=== PATIENT | male | born 1965 | race Hispanic/Latino ===

== ENCOUNTER 2018-09-19 13:11 | Inpatient (IN) | payer BC ==
[2018-09-19] MEDS ORDERED: Piperacillin/Tazobact 3.375 GM in Sodium Chloride 0.9% 100 ML IVPB STA (14:05)
--- NOTE | 2018-09-19 14:16 | CP.PCM.CON ---
History of Present Illness - History of Present Illness History of Present Illness: Podiatry consult note for Dr. Henley, 53yo male, history of diabetes, seen in the ED for left foot ulcer that has been present for several months. Patient states he has been seeing Dr. Henley regularly for the ulcer. Patient states over the last 2 days he has noticed increased redness, swelling and some discharge from the area. Patient denies doing daily dressing changes. States he recently had an MRI for the foot. Patient denies any fever, chills, vomiting, chest pain, shortness of breath, weakness or numbness in his lower extremities. Pmhx: Diabetes Pshx: none Allergies: NKFDA Social history: denies smoking, occasional drinking PMD: Dr. Juliana Bowles Allergies/Adverse Reactions: Allergies Allergy/AdvReac Type Severity Reaction Status Date / Time No Known Allergies Allergy Verified 09/19/18 13:13 - Medications Medications: Current Medications Vancomycin HCl 1 gm/ Sodium (Chloride) 250 mls @ 166.667 mls/hr IVPB STAT STA; Protocol Stop: 09/19/18 15:34 Piperacillin Sod/Tazobactam (Sod 3.375 gm/ Sodium Chloride) 100 mls @ 100 mls/hr IVPB STAT STA; Protocol Stop: 09/19/18 15:04 Physical Exam - Constitutional Appears: Well, Non-toxic, No Acute Distress - Head Exam Head Exam: ATRAUMATIC - Eye Exam Eye Exam: Normal appearance - Extremities Exam Additional comments: Left lower extremity exam: Vascular: DP/PT 2/4, CFT <3 secs x 10, TG warm to hot, edema and erythema noted on the dorsal aspect of the foot and anterior aspect of leg to the knee joint Derm: Ulcer noted at the base of 1st MPJ measuring approximately 2cm x 2cm with fibrotic base. Ulcer is probe to bone, malodorous, active purulent drainage is noted. No tracking or tunneling is appreciated. fluctuance is noted on the dorsal aspect of the 1st MPJ. Erythema and edema noted on the dorsal aspect of the foot extending distally to the knee joint ortho: no pain with palpation of the ulcer, minimal palpation with palpation of the leg diffusely neuro: protective sensation diminished 0/4. Results - Vital Signs Recent Vital Signs: Last Vital Signs Temp 100.3 F H 09/19/18 13:13 Pulse 109 H 02/05/19 13:13 Resp 18 09/19/18 13:13 BP 132/76 09/19/18 13:13 Pulse Ox 97 09/19/18 13:13 - Labs Result Diagrams: 09/19/18 14:26 09/19/18 14:26 Assessment & Plan - Assessment and Plan (Free Text) Assessment: 53 yo male seen and evaluated for left foot first MPJ infected ulcer with cellulitic changes distal to the knee joint. Plan: Patient seen and evaluated Chart, labs and vitals reviewed; WBC 13.8 100.3 F Left foot x-rays reviewed: erosions noted to the distal aspect of the first metatarsal and proximal aspect of first proximal phalanx, no subcutaneous emphysema noted Left foot dressed with gauze, and kerlix Wound cultures taken and ordered Blood cultures taken and ordered Plan: Patient for incision and drainage today (09/19). NPO order placed Patient to be admitted under hospitalist. Please provide medical clearance. Podiatry will continue to follow the patient; thank you for the consult
--- NOTE | 2018-09-19 14:34 | ED PDOC ---
Lower Extremity Pain/Injury Time Seen by Provider: 09/19/18 13:29 Chief Complaint (Nursing): Lower Extremity Problem/Injury Chief Complaint (Provider): Left foot pain History Per: Patient History/Exam Limitations: no limitations Onset/Duration Of Symptoms: Persistent Current Symptoms Are (Timing): Still Present Additional Complaint(s): 53yo male, history of diabetes, comes to ER reporting left foot ulcer x months, but states over the past 5 days, he has noted increased redness, swelling and discharge from the site. Patient went to see his ingredient handler Dr. Henley, who recommended him to come to the ER for further evaluation. Patient otherwise denies any fever, chills, vomiting, chest pain, shortness of breath, weakness or numbness in his lower extremities. PMD: Dr. Andrews - Ankle/Foot Description Of Injury: Other (non-healing ulcer) Past Medical History Reviewed: Historical Data, Nursing Documentation, Vital Signs Vital Signs: Last Vital Signs Temp 100.3 F H 09/19/18 13:13 Pulse 109 H 09/19/18 13:13 Resp 18 09/19/18 13:13 BP 132/76 09/19/18 13:13 Pulse Ox 97 09/19/18 13:13 - Medical History PMH: Diabetes - Surgical History Surgical History: No Surg Hx - Family History Family History: States: No Known Family Hx - Social History Current smoker - smoking cessation education provided: No Alcohol: None Drugs: Denies - Home Medications Home Medications: Ambulatory Orders Medication Instructions Recorded DULoxetine [Cymbalta] 60 mg PO HS 09/19/18 Folic Acid 0.4 mg PO DAILY 09/19/18 Glyburide/Metformin HCl 1 tab PO QPM 09/19/18 [Glyburide-Metformin 2.5-500 mg] Lovastatin 20 mg PO HS 09/19/18 Multivit-Min/FA/Lycopen/Lutein 1 tab PO DAILY 09/19/18 [Centrum Silver Men Tablet] Pyridoxine [Vitamin B6 50 mg Tab] 50 mg PO DAILY 09/19/18 lamoTRIgine [Lamictal] 25 mg PO Q12 09/19/18 - Allergies Allergies/Adverse Reactions: Allergies Allergy/AdvReac Type Severity Reaction Status Date / Time No Known Allergies Allergy Verified 09/19/18 13:13 Review of Systems ROS Statement: Except As Marked, All Systems Reviewed And Found Negative Constitutional: Negative for: Fever, Chills Cardiovascular: Negative for: Chest Pain Respiratory: Negative for: Shortness of Breath Gastrointestinal: Negative for: Vomiting Musculoskeletal: Positive for: Foot Pain (left foot pain, redness and swelling) Neurological: Negative for: Weakness, Numbness Physical Exam - Reviewed Nursing Documentation Reviewed: Yes Vital Signs Reviewed: Yes - Physical Exam Appears: Positive for: Non-toxic, No Acute Distress Head Exam: Positive for: ATRAUMATIC, NORMAL INSPECTION, NORMOCEPHALIC Skin: Positive for: Normal Color Eye Exam: Positive for: Normal appearance, EOMI, PERRL Neck: Positive for: Normal, Supple Cardiovascular/Chest: Positive for: Regular Rate, Rhythm Respiratory: Positive for: Normal Breath Sounds Pulses-Dorsalis Pedis (R): 2+ Pulses-Post. Tibialis (R): 2+ Gastrointestinal/Abdominal: Positive for: Normal Exam, Soft Back: Positive for: Normal Inspection Extremity: Positive for: Normal ROM (FROM bilateral lower extremities), Swelling (swelling and erythema noted to left lower extremity), Other (full exam of left foot limited as the foot is wrapped; will wait for eval after podiatry resident sees patient.). Negative for: Calf Tenderness, Deformity Neurologic/Psych: Positive for: Alert, Oriented. Negative for: Motor/Sensory Deficits - Laboratory Results Result Diagrams: 09/20/18 03:15 09/20/18 03:15 - ECG O2 Sat by Pulse Oximetry: 97 (RA) Pulse Ox Interpretation: Normal Medical Decision Making Medical Decision Making: Impression: 53yo male with non-healing ulcer to left foot Differential: osteomyelitis, cellulitis, sepsis Plan: -- labs -- XR left foot -- VBG -- IV Vancomycin -- IV Zosyn -- Tylenol 650mg PO Patient states he recently had MRI of his left foot, which indicated left foot osteomyelitis. 1400 Case discussed with podiatry resident, who will evaluate patient at bedside. [address] Andrews, who is agreeable with plan for admission. 1510 Right foot exam: (+) erythema to left foot; (+) fluctuance noted to plantar aspect of left foot, on the 1st metatarsal; wound noted to same area with discharge. [address] Joel, hospitalist regional service manager, who accepts patient for admission. Plan of care discussed with patient, who is agreeable. Scribe Attestation: Documented by Kelly Hope acting as a scribe for Agustin Alfonso MD. Provider Attestation: All medical record entries made by the Scribe were at my direction and personally dictated by me. I have reviewed the chart and agree that the record accurately reflects my personal performance of the history, physical exam, medical decision making, and the department course for this patient. I have also personally directed, reviewed, and agree with the discharge instructions and disposition. Disposition - Clinical Impression Clinical Impression: Cellulitis, Osteomyelitis of foot, Sepsis - Patient ED Disposition Is Patient to be Admitted: Yes Discussed With DrLyssa: Aravind Joel Doctor Will See Patient In The: ED Counseled Patient/Family Regarding: Studies Performed, Diagnosis - Disposition Disposition Time: 15:17 Condition: FAIR - Pt Status Changed To: Hospital Disposition Of: Inpatient - Admit Certification Admit to Inpatient:: After my assessment, the patient will require hospitalization for at least two midnights. This is because of the severity of symptoms shown, intensity of services needed, and/or the medical risk in this patient being treated as an outpatient. - POA Present On Arrival: Poor Glycemic Control, Pressure Ulcer
[2018-09-19 14:40] LABS: VENOUS BLOOD GAS PCO2 40 mmHg (40-60); VENOUS BLOOD GAS PO2 20 mm/Hg (30-55)
[2018-09-19] MEDS ORDERED: Sodium Chloride 0.9% 1,000 ML IV STA (14:41)
[2018-09-19 14:45] LABS: BASO % 0.2 % (0.0-2.0); EOS % 0.2 % (0.0-4.0); HEMOGLOBIN 12.3 g/dL (12.0-18.0); MEAN CELL VOLUME 89.6 fl (80.0-94.0); MEAN CORPUSCULAR HGB CONC 33.5 g/dL (33.0-37.0); MEAN PLATELET VOLUME 9.8 fl (7.2-11.7); MONO # 1.5 K/uL (0.0-0.8); MONO % 10.8 % (0.0-10.0); NEUT # 11.3 K/uL (1.8-7.0); NEUT % 81.8 % (50.0-75.0); NRBC % 0.2 % (0.0-0.0); PLATELET COUNT 189 K/uL (130-400); RED CELL DISTRIBUTION WIDTH 13.1 % (11.5-14.5); WHITE BLOOD COUNT 13.8 K/uL (4.8-10.8)
[2018-09-19 14:48] LABS: INR 1.3; PROTHROMBIN TIME 15.1 Seconds (9.8-13.1)
[2018-09-19 14:51] LABS: PARTIAL THROMBOPLASTIN TIME 26.2 Seconds (25.6-37.1)
[2018-09-19 14:52] LABS: BLOOD UREA NITROGEN 34 mg/dl (9-20); CALCIUM 9.3 mg/dL (8.4-10.2); GFR NON-AFRICAN AMERICAN > 60
[2018-09-19 15:23] LABS: BANDS 2 % (0-2); BASOPHIL 1 % (0-2); LYMPHOCYTE 8 % (20-50); MONOCYTE 12 % (0-10); NEUTROPHIL 75 % (42-75); REACTIVE LYMPHOCYTES 2 % (0-0); TOTAL CELLS COUNTED 100
--- NOTE | 2018-09-19 15:23 | CP.PCM.CON ---
History of Present Illness - History of Present Illness History of Present Illness: Infectious Disease Consultation Note- asked to see this patient at the request of hospitalist for infected foot ulcer /cellulitis. HPI- Patient is a 53 year old male with PMH of M II, peripheral neuropathy who was told to go to ER by His beekeeper for treatment of his infected left plantar ulcer and surrounding cellulitis and edema. Monican sattes he has had this plantar ulcer for along time and follows up with his beekeeper every 2 weeks for local wound care, however , he satts over the last few days he has developed redness, swelling and pain in the surrounding region and when he saw his beekeeper today he was advised to go to ER for further evaluation adn IV antibiotics and he also states he had recent outpatient MRI of the foot and it showed possible OM as well and he was told he may need surgery as well for this. He denies any fever or chills . PMD: Dr. Andrews PMHx: DMII, HLD PSHx: denies SHx: Former tobacco use (2009), social alcohol use, denies drug use Meds: Cymbalta, Glyburide/Metformin, Lamictal, Lovastatin, Multivitamin ALL: NKDA ED course: Vanco/Zosyn x1 dose given Foot x-ray taken; No fracture or dislocation, diffuse soft tissue edema Review of Systems - Review of Systems Review of Systems: ROS_ denies any fever or chills, denies any BUSTILLOS, denies any cough, denies any sob, denies any chest pain, denies any abd. pain, denies any nausea or vomiting, denies any dysurea, denies any diarrhea left plantar foot with chronic nonhealing ulcer and has developed redness and swelling in the foot extending to the leg Past Patient History - Past Social History Alcohol: None Drugs: Denies Home Situation {Lives}: Alone - CARDIAC Hx Cardiac Disorders: No - PULMONARY Hx Respiratory Disorders: No - ENDOCRINE/METABOLIC Hx Diabetes Mellitus Type 2: Yes - HEMATOLOGICAL/ONCOLOGICAL Hx Blood Disorders: No Meds Allergies/Adverse Reactions: Allergies Allergy/AdvReac Type Severity Reaction Status Date / Time No Known Allergies Allergy Verified 09/19/18 13:13 - Medications Medications: Current Medications Vancomycin HCl 1 gm/ Sodium (Chloride) 250 mls @ 166.667 mls/hr IVPB STAT STA; Protocol Stop: 09/19/18 15:34 Sodium Chloride (Sodium Chloride 0.9%) 1,000 mls @ 1,000 mls/hr IV .Q1H STA Stop: 09/19/18 15:40 Physical Exam - Constitutional Appears: No Acute Distress - Head Exam Head Exam: ATRAUMATIC - Eye Exam Eye Exam: EOMI - ENT Exam ENT Exam: Normal Oropharynx - Neck Exam Neck exam: Positive for: Full Rom - Respiratory Exam Respiratory Exam: Clear to Auscultation Bilateral, NORMAL BREATHING PATTERN - Cardiovascular Exam Cardiovascular Exam: RRR, +S1, +S2 - GI/Abdominal Exam GI & Abdominal Exam: Normal Bowel Sounds, Soft Additional comments: NT, ND - Extremities Exam Additional comments: left plantar superior region with open wound around 3 x 3 cm, no malodor, no active discharge positive erythema and edema in the surrounding region and dorsal foot and ankle extending to mid calf region - Neurological Exam Neurological exam: Alert, Oriented x3 Results - Vital Signs Recent Vital Signs: Last Vital Signs Temp 100.3 F H 09/19/18 13:13 Pulse 109 H 09/19/18 13:13 Resp 18 09/19/18 13:13 BP 132/76 09/19/18 13:13 Pulse Ox 97 09/19/18 15:17 - Labs Result Diagrams: 09/19/18 14:26 09/19/18 14:26 Labs: Laboratory Results - last 24 hr 09/19/18 09/19/18 09/19/18 14:26 14:26 14:26 WBC 13.8 H RBC 4.10 L Hgb 12.3 Hct 36.7 MCV 89.6 MCH 30.0 MCHC 33.5 RDW 13.1 Plt Count 189 MPV 9.8 Neut % (Auto) 81.8 H Lymph % (Auto) 7.0 L [place] % (Auto) 10.8 H Eos % (Auto) 0.2 Baso % (Auto) 0.2 Neut # (Auto) 11.3 H Lymph # (Auto) 1.0 [place] # (Auto) 1.5 H Eos # (Auto) 0.0 Baso # (Auto) 0.0 PT 15.1 H INR 1.3 APTT 26.2 pO2 VBG pH VBG pCO2 VBG HCO3 VBG Total CO2 VBG O2 Sat (Calc) VBG Base Excess VBG Potassium Glucose Lactate FiO2 Sodium 134 Potassium 5.3 H Chloride 94 L Carbon Dioxide 24 Anion Gap 21 H BUN 34 H Creatinine 0.7 L Est GFR ( Amer) > 60 Est GFR (Non-Af Amer) > 60 Random Glucose 246 H Calcium 9.3 Venous Blood Potassium BBK History Checked 09/19/18 09/19/18 14:26 14:37 WBC RBC Hgb Hct MCV MCH MCHC RDW Plt Count MPV Neut % (Auto) Lymph % (Auto) [place] % (Auto) Eos % (Auto) Baso % (Auto) Neut # (Auto) Lymph # (Auto) [place] # (Auto) Eos # (Auto) Baso # (Auto) PT INR APTT pO2 20 L VBG pH 7.40 VBG pCO2 40 VBG HCO3 23.2 VBG Total CO2 26.0 VBG O2 Sat (Calc) 45.0 VBG Base Excess 0.0 VBG Potassium 5.0 Glucose 259 H Lactate 3.8 H FiO2 21.0 Sodium 129.0 L Potassium Chloride 101.0 Carbon Dioxide Anion Gap BUN Creatinine Est GFR ( Amer) Est GFR (Non-Af Amer) Random Glucose Calcium Venous Blood Potassium 5.0 BBK History Checked No verified bt Assessment & Plan (1) Cellulitis Status: Acute (2) Non-healing ulcer of left foot Status: Acute (3) Diabetes Status: Acute - Assessment and Plan (Free Text) Assessment: A/P- 53 year old male with DM II, nonhealing left foot ulcer admitted with edema and erythema in the left foot and leg c/w cellulitis and possible OM. low grade fever mild leukocytosis foot xray report-No acute fracture or dislocation left foot. However, diffuse soft tissue edema is appreciated throughout the left foot both to clearly at the great toe and 1st metatarsophalangeal joint with erosive changes suspicious for gout. Other deposition arthritis or even osteomyelitis would be difficult to fully exclude. Follow-up MRI recommended. Gross hallux valgus deformity. Plan- check blood cx x2 check wound cx. agree with IV zosyn and vanco as initiated by the admitting team. keep vanco trough between 10-15. check ESR. obtain the outpatient MRI report. check LLE US r/o dvt as well. all labs and imaging and chart notes reviewed. Plan d/w patient and he verbalizes full understanding of all above and agrees with above plan of care. Thank you for allowing me to take part in the care of this patient.
[2018-09-19 15:24] LABS: PLATELET ESTIMATE NORMAL (NORMAL)
--- NOTE | 2018-09-19 15:43 | CP.PCM.HP ---
History of Present Illness - History of Present Illness History of Present Illness: 53 year old male patient, with PMHx of DM and HLD, seen and evaluated in the ED for left foot infection secondary to left plantar ulceration. Patient states that he has had the ulceration on and off for a couple of years and it has rec ently gotten larger. He follows up with Dr. Henley every two weeks for continued evaluation and local wound care. However he missed his last appointment by one week, went to Dr. Henley's office today, and was told to go to the ER for admission. He denies N/V/F/SOB, admits to chills. PMD: Dr. Andrews PMHx: DMII, HLD PSHx: denies SHx: Former tobacco use (2009), social alcohol use, denies drug use Meds: Cymbalta, Glyburide/Metformin, Lamictal, Lovastatin, Multivitamin ALL: NKDA ED course: Vanco/Zosyn x1 dose given Foot x-ray taken; No fracture or dislocation, diffuse soft tissue edema Vitals: 100.3F, HR 109, RR 18, BP 132/76 Glucose 259, WBC 13.8, Lactate 3.8 Present on Admission - Present on Admission Any Indicators Present on Admission: Yes History of DVT/PE: No History of Uncontrolled Diabetes: Yes Urinary Catheter: No Decubitus Ulcer Present: No History Surgical Site Infection Following: None Review of Systems - Constitutional Constitutional: As Per HPI, Chills. absent: Fever Past Patient History - Past Social History Alcohol: None Drugs: Denies Meds Allergies/Adverse Reactions: Allergies Allergy/AdvReac Type Severity Reaction Status Date / Time No Known Allergies Allergy Verified 09/19/18 13:13 Physical Exam - Constitutional Appears: No Acute Distress - Head Exam Head Exam: ATRAUMATIC, NORMOCEPHALIC - Eye Exam Eye Exam: Normal appearance Pupil Exam: NORMAL ACCOMODATION - Cardiovascular Exam Cardiovascular Exam: REGULAR RHYTHM - GI/Abdominal Exam GI & Abdominal Exam: Normal Bowel Sounds - Extremities Exam Additional comments: Left lower extremity ulceration Cellulitis appreciated from ulceration site to distal aspect of left leg - Neurological Exam Neurological exam: Alert, Oriented x3 - Psychiatric Exam Psychiatric exam: Normal Affect, Normal Mood Results - Vital Signs Recent Vital Signs: Last Vital Signs Temp 100.3 F H 09/19/18 13:13 Pulse 109 H 09/19/18 13:13 Resp 18 09/19/18 13:13 BP 132/76 09/19/18 13:13 Pulse Ox 97 09/19/18 15:17 - Labs Result Diagrams: 09/19/18 14:26 09/19/18 14:26 Labs: Laboratory Results - last 24 hr 09/19/18 09/19/18 09/19/18 14:26 14:26 14:26 WBC 13.8 H RBC 4.10 L Hgb 12.3 Hct 36.7 MCV 89.6 MCH 30.0 MCHC 33.5 RDW 13.1 Plt Count 189 MPV 9.8 Neut % (Auto) 81.8 H Lymph % (Auto) 7.0 L [place] % (Auto) 10.8 H Eos % (Auto) 0.2 Baso % (Auto) 0.2 Neut # (Auto) 11.3 H Lymph # (Auto) 1.0 [place] # (Auto) 1.5 H Eos # (Auto) 0.0 Baso # (Auto) 0.0 Neutrophils % (Manual) 75 Band Neutrophils % 2 Lymphocytes % (Manual) 8 L Reactive Lymphs % 2 H Monocytes % (Manual) 12 H Basophils % (Manual) 1 Platelet Estimate Normal RBC Morphology Normal PT 15.1 H INR 1.3 APTT 26.2 pO2 VBG pH VBG pCO2 VBG HCO3 VBG Total CO2 VBG O2 Sat (Calc) VBG Base Excess VBG Potassium Glucose Lactate FiO2 Sodium 134 Potassium 5.3 H Chloride 94 L Carbon Dioxide 24 Anion Gap 21 H BUN 34 H Creatinine 0.7 L Est GFR ( Amer) > 60 Est GFR (Non-Af Amer) > 60 Random Glucose 246 H Calcium 9.3 Venous Blood Potassium Blood Type Blood Type Confirm Antibody Screen BBK History Checked 09/19/18 09/19/18 09/19/18 14:26 14:37 15:04 WBC RBC Hgb Hct MCV MCH MCHC RDW Plt Count MPV Neut % (Auto) Lymph % (Auto) [place] % (Auto) Eos % (Auto) Baso % (Auto) Neut # (Auto) Lymph # (Auto) [place] # (Auto) Eos # (Auto) Baso # (Auto) Neutrophils % (Manual) Band Neutrophils % Lymphocytes % (Manual) Reactive Lymphs % Monocytes % (Manual) Basophils % (Manual) Platelet Estimate RBC Morphology PT INR APTT pO2 20 L VBG pH 7.40 VBG pCO2 40 VBG HCO3 23.2 VBG Total CO2 26.0 VBG O2 Sat (Calc) 45.0 VBG Base Excess 0.0 VBG Potassium 5.0 Glucose 259 H Lactate 3.8 H FiO2 21.0 Sodium 129.0 L Potassium Chloride 101.0 Carbon Dioxide Anion Gap BUN Creatinine Est GFR ( Amer) Est GFR (Non-Af Amer) Random Glucose Calcium Venous Blood Potassium 5.0 Blood Type AB POSITIVE Blood Type Confirm AB POSITIVE Antibody Screen Negative BBK History Checked No verified bt Assessment & Plan - Assessment and Plan (Free Text) Assessment: 53 year old male patient, with PMHx of DM and HLD, admitted for sepsis Plan: 1. Sepsis secondary to left foot ulceration with possible abscess - Admit to med/surg - Podiatry consult: Dr. Henley - ID consult Dr. Cervantes - NPO diet - Fluids at 250ml/hr - C/w Vanco/Zosyn - CBC, CMP, PT/INR - CXR- prelim within normal limits (my interpretation), will f/u with official results - Cleared by Cardio - Patient to OR tonight at 7:30 per podiatry 2. DMII - hold metformin/glipizide - continue with medium dose sliding scale 3. HLD - start statins tomorrow 4. Neuropathy - will start cymbalta and lyrica tomorrow, hold for now 4. DVT prophylaxis - SCDs 5. Code status -Full code - Date & Time Date: 09/19/18 Time: 16:31
[2018-09-19] MEDS ORDERED: Piperacillin/Tazobact 3.375 gm Inj IVPB ONE (15:49)
[2018-09-19] MEDS ORDERED: Glucagon Recombinant 1 mg Inj IM PRN (15:52)
[2018-09-19] MEDS ORDERED: Dextrose 50% SYRINGE Inj (50 ml) IV PRN (15:52)
[2018-09-19] MEDS ORDERED: Dextrose 50% SYRINGE Inj (50 ml) IVP PRN (15:52)
[2018-09-19] MEDS ORDERED: Sodium Chloride 0.9% 1,000 ML IV SCH ×2 (16:00→16:41)
[2018-09-19] MEDS: Piperacillin/Tazobact 3.375 GM in Sodium Chloride 0.9% 100 ML IVPB SCH ×2 (16:07→22:06)
--- NOTE | 2018-09-19 16:07 | RAD ---
Date of service: 09/19/2018 PROCEDURE: Left Foot Radiographs. HISTORY: left foot ulcer pain swelling COMPARISON: None. FINDINGS: BONES: No acute fracture or dislocation identified. Soft tissue edema surrounds the great toe and 1st metatarsal phalangeal joint with diffuse soft tissue edema seen throughout the midfoot and hindfoot on a low less prominent basis compared to the great toe. No emphysematous soft tissue change are identified or retained radiodense foreign bodies. However, a severe hallux valgus deformity is evident with marginal erosions related to the 1st metatarsal phalangeal joint suspicious for possible gout or other deposition all arthritis. No additional marginal erosions. Osteomyelitis not completely excluded. Follow-up MRI is recommended. JOINTS: As above. SOFT TISSUES: Normal. OTHER FINDINGS: None. IMPRESSION: No acute fracture or dislocation left foot. However, diffuse soft tissue edema is appreciated throughout the left foot both to clearly at the great toe and 1st metatarsophalangeal joint with erosive changes suspicious for gout. Other deposition arthritis or even osteomyelitis would be difficult to fully exclude. Follow-up MRI recommended. Gross hallux valgus deformity.
[2018-09-19 16:37] LABS: ERYTHROCYTE SEDIMENTATION RATE 95 mm/hr (0-20)
[2018-09-19] MEDS ORDERED: Vancomycin 1 g Inj ONE (17:30)
--- NOTE | 2018-09-19 18:03 | RAD ---
Date of service: 09/19/2018 HISTORY: Sepsis, patient to OR tonight COMPARISON: No prior. FINDINGS: LUNGS: The lungs are well inflated and clear. PLEURA: No pleural effusions or pneumothorax. CARDIOVASCULAR: The heart is normal in size. No aortic atherosclerotic calcifications present. OSSEOUS STRUCTURES: Within normal limits for the patient's age. VISUALIZED UPPER ABDOMEN: Normal. OTHER FINDINGS: None. IMPRESSION: No active pulmonary disease.
[2018-09-19] MEDS: Insulin Regular 100 units/ml SC SCH ×2 (18:05→22:56)
[2018-09-19] MEDS ORDERED: Lidocaine 1% 5ml Abboject ONE (19:04)
[2018-09-19] MEDS ORDERED: Midazolam 2 MG/2 ML VIAL ONE (19:04)
[2018-09-19] MEDS ORDERED: Propofol 10 mg/ml Inj (20 ML) ONE (19:04)
[2018-09-19] MEDS ORDERED: Lidocaine 2% Jelly (5 ml) TOP ONE (19:05)
[2018-09-19] MEDS ORDERED: Bupivacaine 0.5% Inj(30mL) ONE (19:19)
[2018-09-19] MEDS ORDERED: Lidocaine 1% Inj (20ml) ONE (19:19)
[2018-09-19] MEDS ORDERED: Sodium Chloride 0.9% 1,000 ML IV ONE (20:00)
[2018-09-19] MEDS ORDERED: Silver Sulfadiazine 1% CREAM (50 gm) ONE (20:09)
[2018-09-19] MEDS ORDERED: HYDROmorphone 0.5 mg/0.5 ml ISec IVP PRN (21:18)
--- NOTE | 2018-09-19 21:22 | PCM.SURG1 ---
Surgeon's Initial Post Op Note - Surgeon's Notes Surgeon: Dr. Henley Tailor'S Aide: Eileen Kumar, PGY1 Type of Anesthesia: General LMA, Local Anesthesia Administered By: Dr. Delgado Pre-Operative Diagnosis: Left foot submet 1 abscess and osteomyelitis of left tibial and fibular sesamoid of the first metatarsal Operative Findings: see dictation. materials: 3-0 prolene, 1 inch plain packing. injectibles: 20 cc of 1:1 mixture of .5% marcaine and 2% lidocaine plain Post-Operative Diagnosis: same Operation Performed: left foot incision and drainange of the abscess and resection of tibial and fibular sesamoid of the first metatarsal Specimen/Specimens Removed: deep tissue cultures. pathology: tibial and fibular sesamoid of the first metatarsal Estimated Blood Loss: EBL {In ML}: 2 Blood Products Given: N/A Drains Used: No Drains Post-Op Condition: Good Date of Surgery/Procedure: 09/19/18 Time of Surgery/Procedure: 21:22
[2018-09-19] MEDS ORDERED: Oxycodone/Acetaminophen 5/325 mg Tab PO PRN ×2 (21:24)
[2018-09-19] MEDS: Pravastatin Sodium 20 MG TAB PO SCH (22:54)
[2018-09-20] MEDS: Lactated Ringer's 1,000 ML IV SCH ×3 (03:06→17:49)
--- NOTE | 2018-09-20 03:27 | CP.PCM.PCO ---
Addendum Addendum: Late entry: Came see patient around 1 am; patient awake, back from OR; laying comfortably in bed in no acute distress, stated he wanted to sleep. Denied difficulty breathing, specific pain, discomfort. Notified by RN that pt had fever 102.5F; ordered PO acetaminophen 650 mg and repeat blood cultures x2 to be collected. Ordered incentive spirometer Q1 hrs.
[2018-09-20 03:33] LABS: HEMOGLOBIN 10.7 g/dL (12.0-18.0); MEAN CELL VOLUME 88.6 fl (80.0-94.0); MEAN CORPUSCULAR HEMOGLOBIN 29.8 pg (27.0-31.0); MEAN CORPUSCULAR HGB CONC 33.6 g/dL (33.0-37.0); RBC 3.61 Mil/uL (4.40-5.90); RED CELL DISTRIBUTION WIDTH 12.6 % (11.5-14.5); WHITE BLOOD COUNT 9.3 K/uL (4.8-10.8)
[2018-09-20 03:49] LABS: BLOOD UREA NITROGEN 21 mg/dl (9-20); CALCIUM 8.3 mg/dL (8.4-10.2); GFR NON-AFRICAN AMERICAN > 60
[2018-09-20] MEDS: Piperacillin/Tazobact 3.375 GM in Sodium Chloride 0.9% 100 ML IVPB SCH ×4 (03:57→21:22)
[2018-09-20] MEDS: Insulin Regular 100 units/ml SC SCH ×4 (08:29→22:01)
--- NOTE | 2018-09-20 09:45 | CP.PCM.PN ---
Subjective - Date & Time of Evaluation Date of Evaluation: 09/20/18 Time of Evaluation: 08:30 - Subjective Subjective: Podiatry progress note for Dr. Henley, 53yo male, history of diabetes, seen at bedside 1 day s/p I&D of Left foot abscess and resection of tibial and fibular sesamoid of the first metatarsal. Patient is AAox3 and in NAD. Patient states he had a fever overnight twice and was given medicine for it. Patient denies any decrease in appeitite, chills, vomiting, chest pain, shortness of breath, weakness or numbness in his lower extremities Objective - Vital Signs/Intake and Output Vital Signs (last 24 hours): Temp Pulse Resp BP Pulse Ox 98.6 F 85 20 99/49 L 97 09/20/18 08:16 09/20/18 08:16 09/20/18 08:16 09/20/18 08:16 09/20/18 08:16 Intake and Output: 09/20/18 09/20/18 06:59 18:59 Intake Total 500 Balance 500 - Medications Medications: Current Medications Acetaminophen (Tylenol 325mg Tab) 650 mg PO Q6 PRN PRN Reason: Pain, Mild (1-3) Dextrose (Dextrose 50% Inj) 0 ml IV STAT PRN; Protocol PRN Reason: Hypoglycemia Protocol Dextrose (Dextrose 50% Inj) 50 ml IVP ONCE PRN PRN Reason: Hypoglycemia Dextrose (Glutose 15) 0 gm PO ONCE PRN; Protocol PRN Reason: Hypoglycemia Protocol Duloxetine HCl (Cymbalta) 60 mg PO HS [facility] Last Admin: 09/19/18 22:54 Dose: 60 mg Enoxaparin Sodium (Lovenox) 40 mg SC DAILY [facility]; Protocol Glucagon (Glucagen Diagnostic Kit) 0 mg IM STAT PRN; Protocol PRN Reason: Hypoglycemia Protocol Piperacillin Sod/Tazobactam (Sod 3.375 gm/ Sodium Chloride) 100 mls @ 100 mls/hr IVPB Q6 [facility]; Protocol Last Admin: 09/20/18 09:36 Dose: 100 mls/hr Sodium Chloride (Sodium Chloride 0.9%) 1,000 mls @ 250 mls/hr IV .Q4H [facility] Stop: 09/20/18 15:57 Vancomycin HCl 1,200 mg/ (Sodium Chloride) 250 mls @ 166.667 mls/hr IVPB Q12H [facility]; Protocol Last Admin: 09/20/18 05:09 Dose: 166.667 mls/hr Lactated Ringer's (Lactated Ringer's) 1,000 mls @ 100 mls/hr IV .Q10H [facility] Last Admin: 09/20/18 08:30 Dose: Not Given Insulin Human Regular (Humulin R) 0 units SC [facility]; Protocol Last Admin: 09/20/18 08:29 Dose: 2 units Lamotrigine (Lamictal) 25 mg PO Q12 [facility] Last Admin: 09/20/18 09:38 Dose: 25 mg Oxycodone/Acetaminophen (Percocet 5/325 Mg Tab) 1 tab PO Q4 PRN PRN Reason: Pain, moderate (4-7) Stop: 09/22/18 21:25 Oxycodone/Acetaminophen (Percocet 5/325 Mg Tab) 2 tab PO Q4 PRN PRN Reason: Pain, severe (8-10) Stop: 09/22/18 21:25 Pravastatin Sodium (Pravachol) 20 mg PO [facility] Last Admin: 09/19/18 22:54 Dose: 20 mg - Labs Labs: 09/20/18 03:15 09/20/18 03:15 PT 15.1 Seconds (9.8-13.1) H 09/19/18 14:26 INR 1.3 09/19/18 14:26 APTT 26.2 Seconds (25.6-37.1) 09/19/18 14:26 - Constitutional Appears: Well, Non-toxic, No Acute Distress - Head Exam Head Exam: ATRAUMATIC - Eye Exam Eye Exam: Normal appearance Pupil Exam: NORMAL ACCOMODATION - Extremities Exam Additional comments: Left lower extremity exam: Vascular: DP/PT 2/4, CFT <3 secs x 10, TG warm to warm, edema and erythema noted on the dorsal aspect of the foot and anterior aspect of leg to the knee joint(resolving proximally) Derm: Surigical Incision noted connecting the Ulcer noted at the base of 1st MPJ measuring approximately 2cm x 2cm with fibrotic base. Ulcer is probe to bone, minimal active serosanguinous drainage. Retention sutures noted at the incisino site with packing intact. Erythema and edema noted on the dorsal aspect of the foot extending distally to the knee joint( resolving proximally) ortho: no pain with palpation of the ulcer, minimal palpation with palpation of the leg diffusely neuro: protective sensation diminished 0/4. Assessment and Plan - Assessment and Plan (Free Text) Assessment: 53 yo male seen and evaluated 1 day s/p Left foot I&D and resection of tibial and fibular sesamoid of the first metatarsal Plan: Patient seen and evaluated Chart, labs and vitals reviewed; WBC 9.3 102.7 at night. Left foot x-rays reviewed: erosions noted to the distal aspect of the first metatarsal and proximal aspect of first proximal phalanx, no subcutaneous emphysema noted Packing advanced from the ulcer site, and dressed with SSD, DSD and BIANKA Wound cultures pending Blood cultures pending Podiatry will continue to follow the patient
--- NOTE | 2018-09-20 10:20 | RAD ---
Date of service: 09/19/2018 PROCEDURE: Left Foot Radiographs. HISTORY: left foot s/p sesamoid resection COMPARISON: 09/19/2018 1:56 p.m. FINDINGS: BONES: Status post resection of sesamoid adjacent to distal aspect 1st metatarsal and osteotomy distal 1st metatarsal. No acute fracture. JOINTS: Osteoarthritis MTP 1. Remaining joint spaces and articular surfaces are preserved. SOFT TISSUES: Postoperative changes medial aspect 1st digit OTHER FINDINGS: None. IMPRESSION: Osteotomy 1st metatarsal and sesamoidectomy adjacent to 1st metatarsal head.
[2018-09-20] MEDS: Enoxaparin 40 mg Syringe SC SCH (10:46)
--- NOTE | 2018-09-20 11:02 | CP.PCM.PN ---
Subjective - Date & Time of Evaluation Date of Evaluation: 09/20/18 Time of Evaluation: 11:02 - Subjective Subjective: Patient seen at bedside this AM. Patient resting comfortably and in NAD. He reports having a fever overnight and was given Tylenol. He states that he feels better now and doesn't feel hot anymore. He reports minimal pain to the surgical site. Denies N/V/F/SOB/CP. Objective - Vital Signs/Intake and Output Vital Signs (last 24 hours): Temp Pulse Resp BP Pulse Ox 98.6 F 85 20 99/49 L 97 09/20/18 08:16 09/20/18 08:16 09/20/18 08:16 09/20/18 08:16 09/20/18 08:16 Intake and Output: 09/20/18 09/20/18 06:59 18:59 Intake Total 500 Balance 500 - Medications Medications: Current Medications Acetaminophen (Tylenol 325mg Tab) 650 mg PO Q6 PRN PRN Reason: Pain, Mild (1-3) Dextrose (Dextrose 50% Inj) 0 ml IV STAT PRN; Protocol PRN Reason: Hypoglycemia Protocol Dextrose (Dextrose 50% Inj) 50 ml IVP ONCE PRN PRN Reason: Hypoglycemia Dextrose (Glutose 15) 0 gm PO ONCE PRN; Protocol PRN Reason: Hypoglycemia Protocol Duloxetine HCl (Cymbalta) 60 mg PO HS [facility] Last Admin: 09/19/18 22:54 Dose: 60 mg Enoxaparin Sodium (Lovenox) 40 mg SC DAILY [facility]; Protocol Last Admin: 09/20/18 10:46 Dose: 40 mg Glucagon (Glucagen Diagnostic Kit) 0 mg IM STAT PRN; Protocol PRN Reason: Hypoglycemia Protocol Piperacillin Sod/Tazobactam (Sod 3.375 gm/ Sodium Chloride) 100 mls @ 100 mls/hr IVPB Q6 [facility]; Protocol Last Admin: 09/20/18 09:36 Dose: 100 mls/hr Sodium Chloride (Sodium Chloride 0.9%) 1,000 mls @ 250 mls/hr IV .Q4H [facility] Stop: 09/20/18 15:57 Vancomycin HCl 1,200 mg/ (Sodium Chloride) 250 mls @ 166.667 mls/hr IVPB Q12H [facility]; Protocol Last Admin: 09/20/18 05:09 Dose: 166.667 mls/hr Lactated Ringer's (Lactated Ringer's) 1,000 mls @ 100 mls/hr IV .Q10H [facility] Last Admin: 09/20/18 08:30 Dose: Not Given Insulin Human Regular (Humulin R) 0 units SC ACHS [facility]; Protocol Last Admin: 09/20/18 08:29 Dose: 2 units Lamotrigine (Lamictal) 25 mg PO Q12 [facility] Last Admin: 09/20/18 09:38 Dose: 25 mg Pravastatin Sodium (Pravachol) 20 mg PO HS [facility] Last Admin: 09/19/18 22:54 Dose: 20 mg - Labs Labs: 09/20/18 03:15 09/20/18 03:15 PT 15.1 Seconds (9.8-13.1) H 09/19/18 14:26 INR 1.3 09/19/18 14:26 APTT 26.2 Seconds (25.6-37.1) 09/19/18 14:26 - Constitutional Appears: Non-toxic, No Acute Distress - Head Exam Head Exam: ATRAUMATIC, NORMOCEPHALIC - Eye Exam Eye Exam: Normal appearance Pupil Exam: NORMAL ACCOMODATION - Respiratory Exam Respiratory Exam: Clear to Ausculation Bilateral, NORMAL BREATHING PATTERN - Cardiovascular Exam Cardiovascular Exam: REGULAR RHYTHM - GI/Abdominal Exam GI & Abdominal Exam: Soft, Normal Bowel Sounds - Extremities Exam Additional comments: L foot dressing C/D/I No strike through appreciated Patient able to wiggle toes - Neurological Exam Neurological Exam: Alert, Awake, Oriented x3 - Psychiatric Exam Psychiatric exam: Normal Affect, Normal Mood - Skin Skin Exam: Warm Assessment and Plan - Assessment and Plan (Free Text) Assessment: 53 year old male patient, with PMHx of DM and HLD, admitted for sepsis. POD#1 L foot I&D. Plan: 1. Sepsis secondary to left foot ulceration with possible abscess - POD#1 Left foot I&D with removal of necrotic bone and soft tissue - Podiatry consult: Dr. Henley - ID consult Dr. Cervantes - C/w Lois/Malcolm, await intra-op wound cultures - Pre-op culture: gram positive cocci - F/u with blood cultures x2 - F/u ESR - CXR; no active pulmonary disease 2. DMII - continue with medium dose sliding scale 3. HLD - C/w pravastatin 4. Diabetic neuropathy - C/w cymbalta and lamictal 4. DVT prophylaxis - SCDs - Lovenox 40mg SC QD 5. Code status -Full code
[2018-09-20] MEDS: Oxycodone/Acetaminophen 5/325 mg Tab PO PRN ×2 (14:40→23:32)
--- NOTE | 2018-09-20 14:56 | CP.PCM.PN ---
Subjective - Date & Time of Evaluation Date of Evaluation: 09/20/18 Time of Evaluation: 11:00 - Subjective Subjective: Id note- Patient seen and examined today. pt. is s/p left foot incision and drainage of the abscess and resection of tibial and fibular sesamoid of the first metatarsal by podiatry yesterday afternoon he denies any fever today and states he feels somewhat better. Objective - Vital Signs/Intake and Output Vital Signs (last 24 hours): Temp Pulse Resp BP Pulse Ox 99.2 F 94 H 20 113/67 97 09/20/18 13:00 09/20/18 13:00 09/20/18 13:00 09/20/18 13:00 09/20/18 13:00 Intake and Output: 09/20/18 09/20/18 06:59 18:59 Intake Total 500 Balance 500 - Medications Medications: Current Medications Acetaminophen (Tylenol 325mg Tab) 650 mg PO Q6 PRN PRN Reason: Pain, Mild (1-3) Dextrose (Dextrose 50% Inj) 0 ml IV STAT PRN; Protocol PRN Reason: Hypoglycemia Protocol Dextrose (Dextrose 50% Inj) 50 ml IVP ONCE PRN PRN Reason: Hypoglycemia Dextrose (Glutose 15) 0 gm PO ONCE PRN; Protocol PRN Reason: Hypoglycemia Protocol Duloxetine HCl (Cymbalta) 60 mg PO HS [facility] Last Admin: 09/19/18 22:54 Dose: 60 mg Enoxaparin Sodium (Lovenox) 40 mg SC DAILY [facility]; Protocol Last Admin: 09/20/18 10:46 Dose: 40 mg Glucagon (Glucagen Diagnostic Kit) 0 mg IM STAT PRN; Protocol PRN Reason: Hypoglycemia Protocol Piperacillin Sod/Tazobactam (Sod 3.375 gm/ Sodium Chloride) 100 mls @ 100 mls/hr IVPB Q6 [facility]; Protocol Last Admin: 09/20/18 09:36 Dose: 100 mls/hr Sodium Chloride (Sodium Chloride 0.9%) 1,000 mls @ 250 mls/hr IV .Q4H [facility] Stop: 09/20/18 15:57 Vancomycin HCl 1,200 mg/ (Sodium Chloride) 250 mls @ 166.667 mls/hr IVPB Q12H [facility]; Protocol Last Admin: 09/20/18 05:09 Dose: 166.667 mls/hr Lactated Ringer's (Lactated Ringer's) 1,000 mls @ 100 mls/hr IV .Q10H [facility] Last Admin: 09/20/18 08:30 Dose: Not Given Insulin [facility]; Protocol Last Admin: 09/20/18 12:45 Dose: 6 units Ketorolac Tromethamine (Toradol) 30 mg IVP Q6 PRN PRN Reason: Pain, moderate (4-7) Lamotrigine (Lamictal) 25 mg PO Q12 [facility] Last Admin: 09/20/18 09:38 Dose: 25 mg Oxycodone/Acetaminophen (Percocet 5/325 Mg Tab) 1 tab PO Q4 PRN PRN Reason: Pain, severe (8-10) Stop: 09/23/18 14:05 Last Admin: 09/20/18 14:40 Dose: 1 tab Pravastatin Sodium (Pravachol) 20 mg PO HS [facility] Last Admin: 09/19/18 22:54 Dose: 20 mg - Labs Labs: - Additional Findings Additional findings: - Constitutional Appears: No Acute Distress - Head Exam Head Exam: ATRAUMATIC - Eye Exam Eye Exam: EOMI - ENT Exam ENT Exam: Normal Oropharynx - Neck Exam Neck exam: Positive for: Full Rom - Respiratory Exam Respiratory Exam: Clear to Auscultation Bilateral, NORMAL BREATHING PATTERN - Cardiovascular Exam Cardiovascular Exam: RRR, +S1, +S2 - GI/Abdominal Exam GI & Abdominal Exam: Normal Bowel Sounds, Soft Additional comments: NT, ND - Extremities Exam Additional comments: left foot wrapped in post-surgical dressing and gauze the erythema on the left leg region seems to be less compared to yesterday adn less edema - Neurological Exam Neurological exam: Alert, Oriented x 3 Laboratory Results - last 72 hr 09/19/18 09/19/18 09/19/18 14:26 14:26 14:26 WBC 13.8 H RBC 4.10 L Hgb 12.3 Hct 36.7 MCV 89.6 MCH 30.0 MCHC 33.5 RDW 13.1 Plt Count 189 MPV 9.8 Neut % (Auto) 81.8 H Lymph % (Auto) 7.0 L [place] % (Auto) 10.8 H Eos % (Auto) 0.2 Baso % (Auto) 0.2 Neut # (Auto) 11.3 H Lymph # (Auto) 1.0 [place] # (Auto) 1.5 H Eos # (Auto) 0.0 Baso # (Auto) 0.0 Neutrophils % (Manual) 75 Band Neutrophils % 2 Lymphocytes % (Manual) 8 L Reactive Lymphs % 2 H Monocytes % (Manual) 12 H Basophils % (Manual) 1 Platelet Estimate Normal RBC Morphology Normal ESR 95 H PT 15.1 H INR 1.3 APTT 26.2 pO2 VBG pH VBG pCO2 VBG HCO3 VBG Total CO2 VBG O2 Sat (Calc) VBG Base Excess VBG Potassium Glucose Lactate FiO2 Sodium 134 Potassium 5.3 H Chloride 94 L Carbon Dioxide 24 Anion Gap 21 H BUN 34 H Creatinine 0.7 L Est GFR ( Amer) > 60 Est GFR (Non-Af Amer) > 60 POC Glucose (mg/dL) Random Glucose 246 H Lactic Acid Calcium 9.3 Venous Blood Potassium Blood Type Blood Type Confirm Antibody Screen BBK History Checked 09/19/18 09/19/18 09/19/18 14:26 14:37 15:04 WBC RBC Hgb Hct MCV MCH MCHC RDW Plt Count MPV Neut % (Auto) Lymph % (Auto) [place] % (Auto) Eos % (Auto) Baso % (Auto) Neut # (Auto) Lymph # (Auto) [place] # (Auto) Eos # (Auto) Baso # (Auto) Neutrophils % (Manual) Band Neutrophils % Lymphocytes % (Manual) Reactive Lymphs % Monocytes % (Manual) Basophils % (Manual) Platelet Estimate RBC Morphology ESR PT INR APTT pO2 20 L VBG pH 7.40 VBG pCO2 40 VBG HCO3 23.2 VBG Total CO2 26.0 VBG O2 Sat (Calc) 45.0 VBG Base Excess 0.0 VBG Potassium 5.0 Glucose 259 H Lactate 3.8 H FiO2 21.0 Sodium 129.0 L Potassium Chloride 101.0 Carbon Dioxide Anion Gap BUN Creatinine Est GFR ( Amer) Est GFR (Non-Af Amer) POC Glucose (mg/dL) Random Glucose Lactic Acid Calcium Venous Blood Potassium 5.0 Blood Type AB POSITIVE Blood Type Confirm AB POSITIVE Antibody Screen Negative BBK History Checked No verified bt 09/19/18 09/19/18 09/19/18 17:40 21:21 22:28 WBC RBC Hgb Hct MCV MCH MCHC RDW Plt Count MPV Neut % (Auto) Lymph % (Auto) [place] % (Auto) Eos % (Auto) Baso % (Auto) Neut # (Auto) Lymph # (Auto) [place] # (Auto) Eos # (Auto) Baso # (Auto) Neutrophils % (Manual) Band Neutrophils % Lymphocytes % (Manual) Reactive Lymphs % Monocytes % (Manual) Basophils % (Manual) Platelet Estimate RBC Morphology ESR PT INR APTT pO2 VBG pH VBG pCO2 VBG HCO3 VBG Total CO2 VBG O2 Sat (Calc) VBG Base Excess VBG Potassium Glucose Lactate FiO2 Sodium Potassium Chloride Carbon Dioxide Anion Gap BUN Creatinine Est GFR ( Amer) Est GFR (Non-Af Amer) POC Glucose (mg/dL) 216 H 139 H 156 H Random Glucose Lactic Acid Calcium Venous Blood Potassium Blood Type Blood Type Confirm Antibody Screen BBK History Checked 09/20/18 09/20/18 09/20/18 03:15 03:15 03:15 WBC 9.3 RBC 3.61 L Hgb 10.7 L Hct 32.0 L MCV 88.6 MCH 29.8 MCHC 33.6 RDW 12.6 Plt Count 153 MPV Neut % (Auto) Lymph % (Auto) [place] % (Auto) Eos % (Auto) Baso % (Auto) Neut # (Auto) Lymph # (Auto) [place] # (Auto) Eos # (Auto) Baso # (Auto) Neutrophils % (Manual) Band Neutrophils % Lymphocytes % (Manual) Reactive Lymphs % Monocytes % (Manual) Basophils % (Manual) Platelet Estimate RBC Morphology ESR PT INR APTT pO2 VBG pH VBG pCO2 VBG HCO3 VBG Total CO2 VBG O2 Sat (Calc) VBG Base Excess VBG Potassium Glucose Lactate FiO2 Sodium 129 L Potassium 4.4 Chloride 98 Carbon Dioxide 26 Anion Gap 9 L BUN 21 H Creatinine 0.7 L Est GFR ( Amer) > 60 Est GFR (Non-Af Amer) > 60 POC Glucose (mg/dL) Random Glucose 199 H Lactic Acid 0.8 Calcium 8.3 L Venous Blood Potassium Blood Type Blood Type Confirm Antibody Screen BBK History Checked 09/20/18 09/20/18 05:39 10:55 WBC RBC Hgb Hct MCV MCH MCHC RDW Plt Count MPV Neut % (Auto) Lymph % (Auto) [place] % (Auto) Eos % (Auto) Baso % (Auto) Neut # (Auto) Lymph # (Auto) [place] # (Auto) Eos # (Auto) Baso # (Auto) Neutrophils % (Manual) Band Neutrophils % Lymphocytes % (Manual) Reactive Lymphs % Monocytes % (Manual) Basophils % (Manual) Platelet Estimate RBC Morphology ESR PT INR APTT pO2 VBG pH VBG pCO2 VBG HCO3 VBG Total CO2 VBG O2 Sat (Calc) VBG Base Excess VBG Potassium Glucose Lactate FiO2 Sodium Potassium Chloride Carbon Dioxide Anion Gap BUN Creatinine Est GFR ( Amer) Est GFR (Non-Af Amer) POC Glucose (mg/dL) 163 H 302 H Random Glucose Lactic Acid Calcium Venous Blood Potassium Blood Type Blood Type Confirm Antibody Screen BBK History Checked Microbiology 09/19/18 17:00 Foot - Left Gram Stain - Final 09/19/18 17:00 Foot - Left Wound Culture - Preliminary Gram Positive Cocci Assessment and Plan (1) Cellulitis Status: Acute (2) Non-healing ulcer of left foot Status: Acute (3) Diabetes Status: Acute - Assessment and Plan (Free Text) Assessment: A/P- 53 year old male with DM II, nonhealing left foot ulcer admitted with edema and erythema in the left foot and leg c/w cellulitis and possible OM. POD #1 pt. is s/p left foot incision and drainage of the abscess and resection of tibial and fibular sesamoid of the first metatarsal by podiatry febrile this am. leukocytosis has resolved. prelim wound cx- GPC blood cx- pending high ESR Plan- await ID and sens of the intra-op wound cx. await blood cx result as well. agree with IV zosyn and vanco day #2. keep vanco trough between 10-15.
[2018-09-20] MEDS: Pravastatin Sodium 20 MG TAB PO SCH (21:14)
[2018-09-21] MEDS: Piperacillin/Tazobact 3.375 GM in Sodium Chloride 0.9% 100 ML IVPB SCH ×4 (04:23→21:30)
[2018-09-21 06:27] LABS: HEMOGLOBIN 10.3 g/dL (12.0-18.0); MEAN CELL VOLUME 89.1 fl (80.0-94.0); MEAN CORPUSCULAR HEMOGLOBIN 30.1 pg (27.0-31.0); MEAN CORPUSCULAR HGB CONC 33.8 g/dL (33.0-37.0); RBC 3.42 Mil/uL (4.40-5.90); RED CELL DISTRIBUTION WIDTH 13.1 % (11.5-14.5); WHITE BLOOD COUNT 6.3 K/uL (4.8-10.8)
[2018-09-21 06:51] LABS: ALB/GLOB RATIO 0.9 (1.0-2.1); ALBUMIN 3.1 g/dL (3.5-5.0); ALT/SGPT 32 U/L (21-72); AST/SGOT 26 U/L (17-59); BLOOD UREA NITROGEN 15 mg/dl (9-20); CALCIUM 8.6 mg/dL (8.4-10.2); GFR NON-AFRICAN AMERICAN > 60
--- NOTE | 2018-09-21 07:20 | OP ---
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 POSTOPERATIVE DIAGNOSES: Osteomyelitis of the sesamoid and first metatarsophalangeal joint of the left foot with acute abscess and cellulitis. SURGEON: Jonathan Henley DPM [employer] VIBRATOR: Eileen Kumar, PGY-1 ANESTHESIOLOGIST: Matthew Delgado MD ANESTHESIA: General anesthesia with local anesthesia. PROCEDURE: Incision and drainage of the left foot with resection of tibial and fibular sesamoid of the first metatarsal and necrotic tissue. INDICATION: The patient is a 53-year-old male with the above diagnosis. The patient has exhausted all conservative treatments at this time and now requires surgical intervention. The patient signed the consent after careful explanation of risks, benefits and complication and alternatives of surgical procedures. No guarantees were given nor implied. N.p.o. status was confirmed prior to taking the patient to the OR. PREPARATION: The patient was brought into the operating room and placed on the operating room table in the supine position. After induction of general anesthesia, time-out was performed for identification of the correct patient and procedure. A well-padded pneumatic thigh tourniquet was applied to the patient's left thigh. The patient received a total of 20 mL of 1:1 mixture of 0.25% Marcaine plain and 2% lidocaine plain in a local block type fashion locally to the abscess and to the posterior tibial nerve. Once local anesthesia was achieved the left foot and leg were then prepped and draped in normal sterile manner. The patient's left foot was then elevated for 3 minutes and the thigh tourniquet was then inflated to 350 mmHg. The procedure then began. DESCRIPTION OF PROCEDURE: Attention was directed to the dorsal aspect of first metatarsophalangeal joint on the left foot where an abscess was noted. A fibro-granular ulcer was noted on the plantar aspect of metatarsal 1. Active purulent drainage was noted and malodor was noted. A 3-mm longitudinal incision was made distal lateral to the ulcer and 4 mm incision was made proximal medial to the ulcer using a sterile #15 blade with care been taken to avoid all neurovascular structures. The incision was then extended down to the bone and a hemostat was utilized to spread the excessive tissue. At this point, 10 mL of purulent drainage was expressed. Wound culture was taken at this time and passed off the operative field. Then using sharp dissection all fibrotic and necrotic tissue was debrided and passed from the operative field. At this time careful dissection was performed to isolate and resect tibial sesamoid of the first metatarsal using sterile #15 blade and pickups. Tibial sesamoid was then dissected and passed of the operative field and sent to pathology. With care being taken to the flexor tendon, fibular sesamoid was then resected using #15 blade and pickups. The fibular sesamoid of the first metatarsal was then passed off the operative filed and sent to pathology. At this time, 5 mL of purulent drainage was then expressed. The site was thoroughly cleaned using pulse lavage. The wound was then packed with plain packing and the wounds were then closed leaving the ulcer open with 3-0 Prolene. Silver sulfadiazine was then used on the ulcer. The site was dressed with Adaptic, gauze, Kerlix, ABD pads and BIANKA bandage. At this time, tourniquet was then deflated and capillary refill time was noted to be less than five seconds to all digits. POSTOPERATIVE CONDITION: The patient tolerated the local anesthesia and procedure well and was escorted to the recovery room with neurovascular status intact to the left foot and vital signs stable. The patient is to remain nonweightbearing at this time. The patient will remain in-house and podiatry will continue to follow. The patient will continue to receive IV antibiotics while inpatient at the hospital. Raquel Kumar Jonathan Henley DPM [place]
--- NOTE | 2018-09-21 08:09 | CP.PCM.PN ---
Subjective - Date & Time of Evaluation Date of Evaluation: 09/21/18 Time of Evaluation: 08:07 - Subjective Subjective: Podiatry progress note for Dr. Henley, 53yo male, history of diabetes, seen at bedside 2 day s/p I&D of Left foot abscess and resection of tibial and fibular sesamoid of the first metatarsal. Patient is AAox3 and in NAD. Patient states he had a fever overnight twice and was given medicine for it. Patient denies any decrease in appeitite, chills, vomiting, chest pain, shortness of breath, weakness or numbness in his lower extremities Objective - Vital Signs/Intake and Output Vital Signs (last 24 hours): Temp Pulse Resp BP Pulse Ox 98.3 F 76 20 113/57 L 95 09/20/18 23:47 09/20/18 23:47 09/20/18 23:47 09/20/18 23:47 09/20/18 23:47 - Medications Medications: Current Medications Acetaminophen (Tylenol 325mg Tab) 650 mg PO Q6 PRN PRN Reason: Pain, Mild (1-3) Dextrose (Dextrose 50% Inj) 0 ml IV STAT PRN; Protocol PRN Reason: Hypoglycemia Protocol Dextrose (Dextrose 50% Inj) 50 ml IVP ONCE PRN PRN Reason: Hypoglycemia Dextrose (Glutose 15) 0 gm PO ONCE PRN; Protocol PRN Reason: Hypoglycemia Protocol Duloxetine HCl (Cymbalta) 60 mg PO HS [facility] Last Admin: 09/20/18 21:14 Dose: 60 mg Enoxaparin Sodium (Lovenox) 40 mg SC DAILY [facility]; Protocol Last Admin: 09/20/18 10:46 Dose: 40 mg Glucagon (Glucagen Diagnostic Kit) 0 mg IM STAT PRN; Protocol PRN Reason: Hypoglycemia Protocol Piperacillin Sod/Tazobactam (Sod 3.375 gm/ Sodium Chloride) 100 mls @ 100 mls/hr IVPB Q6 [facility]; Protocol Last Admin: 09/21/18 04:23 Dose: 100 mls/hr Vancomycin HCl 1,200 mg/ (Sodium Chloride) 250 mls @ 166.667 mls/hr IVPB Q12H [facility]; Protocol Last Admin: 09/20/18 17:47 Dose: 166.667 mls/hr Lactated Ringer's (Lactated Ringer's) 1,000 mls @ 100 mls/hr IV .Q10H [facility] Last Admin: 09/20/18 17:49 Dose: 100 mls/hr Insulin Human Regular (Humulin R) 0 units SC [facility]; Protocol Last Admin: 09/20/18 22:01 Dose: Not Given Ketorolac Tromethamine (Toradol) 30 mg IVP Q6 PRN PRN Reason: Pain, moderate (4-7) Lamotrigine (Lamictal) 25 mg PO Q12 [facility] Last Admin: 09/20/18 21:15 Dose: 25 mg Oxycodone/Acetaminophen (Percocet 5/325 Mg Tab) 1 tab PO Q4 PRN PRN Reason: Pain, severe (8-10) Stop: 09/23/18 14:05 Last Admin: 09/20/18 23:32 Dose: 1 tab Pravastatin Sodium (Pravachol) 20 mg PO [facility] Last Admin: 09/20/18 21:14 Dose: 20 mg Pyridoxine HCl (Vitamin B6 50 Mg Tab) 50 mg PO [facility] Last Admin: 09/20/18 22:52 Dose: 50 mg - Labs Labs: 09/21/18 05:45 09/21/18 05:45 PT 15.1 Seconds (9.8-13.1) H 09/19/18 14:26 INR 1.3 09/19/18 14:26 APTT 26.2 Seconds (25.6-37.1) 09/19/18 14:26 - Constitutional Appears: Well, Non-toxic, No Acute Distress - Head Exam Head Exam: ATRAUMATIC, NORMOCEPHALIC - Eye Exam Eye Exam: Normal appearance - ENT Exam ENT Exam: Mucous Membranes Moist - Extremities Exam Additional comments: Left lower extremity exam: Vascular: DP/PT 2/4, CFT <3 secs x 10, TG warm to warm, edema and erythema noted on the dorsal aspect of the foot and anterior aspect of leg to the knee joint(resolving proximally) Derm: Surigical Incision noted connecting the Ulcer noted at the base of 1st MPJ measuring approximately 2cm x 2cm with fibrotic base. Ulcer is probe to bone, minimal active serosanguinous drainage. Retention sutures noted at the incisino site with packing intact. Erythema and edema noted on the dorsal aspect of the foot extending distally to the knee joint( resolving proximally) ortho: no pain with palpation of the ulcer, minimal palpation with palpation of the leg diffusely neuro: protective sensation diminished 0/4. - Neurological Exam Neurological Exam: Alert, Awake, Oriented x3 Assessment and Plan - Assessment and Plan (Free Text) Assessment: 53 yo male seen and evaluated 2 day s/p Left foot I&D and resection of tibial and fibular sesamoid of the first metatarsal Plan: Patient seen and evaluated Chart, labs and vitals reviewed; WBC 9.3 102.7 at night. Left foot x-rays reviewed: erosions noted to the distal aspect of the first metatarsal and proximal aspect of first proximal phalanx, no subcutaneous emphysema noted Packing removed from the ulcer site, and dressed with SSD, DSD and BIANKA Active purulent drainage noted; 2 cc expressed today Wound cultures pending Blood cultures pending Intra-op Bone pathology pending Podiatry will continue to follow the patient
[2018-09-21] MEDS: Enoxaparin 40 mg Syringe SC SCH (08:36)
[2018-09-21] MEDS: Insulin Regular 100 units/ml SC SCH ×4 (08:37→22:06)
--- NOTE | 2018-09-21 09:51 | CP.PCM.CON ---
History of Present Illness - History of Present Illness History of Present Illness: This 53 year old diabetic male is well known to me from the outpatient setting. He was referred to the emergency room [facility] [employer] consultant because of an infected foot ulcer which has been failing outpatient conservative therapy. He underwent surgery on the day of admission and culture of the abscess has grown staphylococcus aureus (MSSA). He has been fairly well managed as an outpatient and follows instructions with medications, diet and glucose monitoring. He suffers from mixed hyperlipidemia and diabetic neuropathy of both feet. He has also been found to have a monoclonal gammopathy which has been followed by hematology. Past Patient History - Past Medical History & Family History Past Medical History?: Yes - Past Social History Smoking Status: Former Smoker (stopped 1995 1PPD X 20 years) Chewing Tobacco Use: No Cigar Use: No Alcohol: Social Drugs: Denies Home Situation {Lives}: Alone - CARDIAC Hx Cardiac Disorders: No - PULMONARY Hx Respiratory Disorders: No - NEUROLOGICAL Hx Neurological Disorder: No - HEENT Hx HEENT Problems: Yes Other/Comment: Use Eyeglasses - RENAL Hx Chronic Kidney Disease: No - ENDOCRINE/METABOLIC Hx Diabetes Mellitus Type 2: Yes - HEMATOLOGICAL/ONCOLOGICAL Hx Blood Disorders: Yes Other/Comment: MGUS - INTEGUMENTARY Hx Dermatological Problems: No Hx Cellulitis: Yes (with abscess right foot 2011 & 2012) - MUSCULOSKELETAL/RHEUMATOLOGICAL Hx Musculoskeletal Disorders: Yes Other/Comment: Neuropathy - GASTROINTESTINAL Hx Gastrointestinal Disorders: No - GENITOURINARY/GYNECOLOGICAL Hx Genitourinary Disorders: No - PSYCHIATRIC Hx Psychophysiologic Disorder: No Hx Substance Use: No - SURGICAL HISTORY Hx Surgeries: No - ANESTHESIA Hx Anesthesia: Yes Hx Anesthesia Reactions: No Hx Malignant Hyperthermia: No Has any member of the family had a problem w/ anesthesia?: No Meds Allergies/Adverse Reactions: Allergies Allergy/AdvReac Type Severity Reaction Status Date / Time No Known Allergies Allergy Verified 09/19/18 13:13 - Medications Medications: Current Medications Acetaminophen (Tylenol 325mg Tab) 650 mg PO Q6 PRN PRN Reason: Pain, Mild (1-3) Dextrose (Dextrose 50% Inj) 0 ml IV STAT PRN; Protocol PRN Reason: Hypoglycemia Protocol Dextrose (Dextrose 50% Inj) 50 ml IVP ONCE PRN PRN Reason: Hypoglycemia Dextrose (Glutose 15) 0 gm PO ONCE PRN; Protocol PRN Reason: Hypoglycemia Protocol Duloxetine HCl (Cymbalta) 60 mg PO [facility] Last Admin: 09/20/18 21:14 Dose: 60 mg Enoxaparin Sodium (Lovenox) 40 mg SC DAILY [facility]; Protocol Last Admin: 09/21/18 08:36 Dose: 40 mg Glucagon (Glucagen Diagnostic Kit) 0 mg IM STAT PRN; Protocol PRN Reason: Hypoglycemia Protocol Piperacillin Sod/Tazobactam (Sod 3.375 gm/ Sodium Chloride) 100 mls @ 100 mls/hr IVPB Q6 [facility]; Protocol Last Admin: 09/21/18 09:01 Dose: 100 mls/hr Lactated Ringer's (Lactated Ringer's) 1,000 mls @ 100 mls/hr IV .Q10H [facility] Last Admin: 09/20/18 17:49 Dose: 100 mls/hr Vancomycin HCl 1,500 mg/ (Sodium Chloride) 500 mls @ 250 mls/hr IVPB Q12H [facility]; Protocol Insulin Human Regular (Humulin R) 0 units SC ACHS [facility]; Protocol Last Admin: 09/21/18 08:37 Dose: 2 units Ketorolac Tromethamine (Toradol) 30 mg IVP Q6 PRN PRN Reason: Pain, moderate (4-7) Lamotrigine (Lamictal) 25 mg PO Q12 [facility] Last Admin: 09/21/18 08:36 Dose: 25 mg Oxycodone/Acetaminophen (Percocet 5/325 Mg Tab) 1 tab PO Q4 PRN PRN Reason: Pain, severe (8-10) Stop: 09/23/18 14:05 Last Admin: 09/20/18 23:32 Dose: 1 tab Pravastatin Sodium (Pravachol) 20 mg PO [facility] Last Admin: 09/20/18 21:14 Dose: 20 mg Pyridoxine HCl (Vitamin B6 50 Mg Tab) 50 mg PO [facility] Last Admin: 09/20/18 22:52 Dose: 50 mg Physical Exam - Additional Findings Additional findings: Large dressing applied to left foot. Left great toe visible, pink and warm. Vibratory and pinprick sensations are diminished in both feet. Light touch is also markedly diminished in both feet. Pulses are diminished but present bilaterally. No cyanosis or ecchymosis or rash. No palpable lymphadenopathy. Conjunctivae are pink and there is no scleral icterus. Pharynx is pink and mucous membranes are moist without exudate. Nares are patent bilaterally and the mucosa appears hyperemic without bleeding or exudate. Neck is supple and trachea is midline. No neck vein distention or carotid bruit. No thyromegaly. No dullness on chest percussion. Equal expansion. Breath sounds are well heard bilaterally without any rales or wheezes. No bronchial breath sounds or egophony. Occasional rhonchi are heard in the lower lobes. The heart sounds are well heard and rhythm is regular without murmur. Abdomen soft and nontender with normal bowel sounds and no CVA tenderness or palpable HSM. Results - Vital Signs Recent Vital Signs: Last Vital Signs Temp 98.3 F 09/20/18 23:47 Pulse 76 09/20/18 23:47 Resp 20 09/20/18 23:47 BP 113/57 L 09/20/18 23:47 Pulse Ox 95 09/20/18 23:47 - Labs Result Diagrams: 09/22/18 05:30 09/22/18 05:30 Labs: Laboratory Results - last 24 hr 09/20/18 09/20/18 09/20/18 10:55 15:49 21:38 WBC RBC Hgb Hct MCV MCH MCHC RDW Plt Count ESR Sodium Potassium Chloride Carbon Dioxide Anion Gap BUN Creatinine Est GFR ( Amer) Est GFR (Non-Af Amer) POC Glucose (mg/dL) 302 H 232 H 206 H Random Glucose Calcium Phosphorus Magnesium Total Bilirubin AST ALT Alkaline Phosphatase Total Protein Albumin Globulin Albumin/Globulin Ratio Vancomycin Trough 09/21/18 09/21/18 09/21/18 05:42 05:45 05:45 WBC 6.3 RBC 3.42 L Hgb 10.3 L Hct 30.4 L MCV 89.1 MCH 30.1 MCHC 33.8 RDW 13.1 Plt Count 137 ESR 110 H Sodium Potassium Chloride Carbon Dioxide Anion Gap BUN Creatinine Est GFR ( Amer) Est GFR (Non-Af Amer) POC Glucose (mg/dL) 168 H Random Glucose Calcium Phosphorus Magnesium Total Bilirubin AST ALT Alkaline Phosphatase Total Protein Albumin Globulin Albumin/Globulin Ratio Vancomycin Trough 5.0 09/21/18 05:45 WBC RBC Hgb Hct MCV MCH MCHC RDW Plt Count ESR Sodium 137 Potassium 4.5 Chloride 98 Carbon Dioxide 29 Anion Gap 15 BUN 15 Creatinine 0.7 L Est GFR ( Amer) > 60 Est GFR (Non-Af Amer) > 60 POC Glucose (mg/dL) Random Glucose 164 H Calcium 8.6 Phosphorus 3.1 Magnesium 2.0 Total Bilirubin 0.5 AST 26 ALT 32 Alkaline Phosphatase 69 Total Protein 6.6 Albumin 3.1 L Globulin 3.5 Albumin/Globulin Ratio 0.9 L Vancomycin Trough Assessment & Plan (1) Cellulitis Status: Acute Priority: High (2) Osteomyelitis of foot Status: Acute Priority: High (3) Non-healing ulcer of left foot Status: Chronic Priority: High (4) Diabetes Status: Chronic Priority: High (5) MGUS (monoclonal gammopathy of unknown significance) Status: Chronic Priority: High (6) Mixed hyperlipidemia due to type 2 diabetes mellitus Status: Chronic Priority: High - Assessment and Plan (Free Text) Assessment: Maintain current medical regimen. Awaiting final pathology report. Followup by ID for antibiotic management. Maintain diabetic diet and meds. - Date & Time Date: 09/21/18 Time: 09:51
--- NOTE | 2018-09-21 10:23 | CP.PCM.PN ---
Subjective - Date & Time of Evaluation Date of Evaluation: 09/21/18 Time of Evaluation: 10:22 - Subjective Subjective: Patient seen and evaluated this morning. Patient resting comfortably and in NAD. He denies any pain to his L foot at this time and his pain is well controlled. He states that he did not have a fever overnight and feels better today. He denies any nausea/vomitting/fever/sob/chest pain. Objective - Vital Signs/Intake and Output Vital Signs (last 24 hours): Temp Pulse Resp BP Pulse Ox 98.3 F 76 20 113/57 L 95 09/20/18 23:47 09/20/18 23:47 09/20/18 23:47 09/20/18 23:47 09/20/18 23:47 - Medications Medications: Current Medications Acetaminophen (Tylenol 325mg Tab) 650 mg PO Q6 PRN PRN Reason: Pain, Mild (1-3) Dextrose (Dextrose 50% Inj) 0 ml IV STAT PRN; Protocol PRN Reason: Hypoglycemia Protocol Dextrose (Dextrose 50% Inj) 50 ml IVP ONCE PRN PRN Reason: Hypoglycemia Dextrose (Glutose 15) 0 gm PO ONCE PRN; Protocol PRN Reason: Hypoglycemia Protocol Duloxetine HCl (Cymbalta) 60 mg PO HS [facility] Last Admin: 09/20/18 21:14 Dose: 60 mg Enoxaparin Sodium (Lovenox) 40 mg SC DAILY [facility]; Protocol Last Admin: 09/21/18 08:36 Dose: 40 mg Glucagon (Glucagen Diagnostic Kit) 0 mg IM STAT PRN; Protocol PRN Reason: Hypoglycemia Protocol Piperacillin Sod/Tazobactam (Sod 3.375 gm/ Sodium Chloride) 100 mls @ 100 mls/hr IVPB Q6 [facility]; Protocol Last Admin: 09/21/18 09:01 Dose: 100 mls/hr Lactated Ringer's (Lactated Ringer's) 1,000 mls @ 100 mls/hr IV .Q10H [facility] Last Admin: 09/20/18 17:49 Dose: 100 mls/hr Vancomycin HCl 1,500 mg/ (Sodium Chloride) 500 mls @ 250 mls/hr IVPB Q12H [facility]; Protocol Last Admin: 09/21/18 10:00 Dose: 250 mls/hr Insulin Human Regular (Humulin R) 0 units SC ACHS [facility]; Protocol Last Admin: 09/21/18 08:37 Dose: 2 units Ketorolac Tromethamine (Toradol) 30 mg IVP Q6 PRN PRN Reason: Pain, moderate (4-7) Lamotrigine (Lamictal) 25 mg PO Q12 [facility] Last Admin: 09/21/18 08:36 Dose: 25 mg Oxycodone/Acetaminophen (Percocet 5/325 Mg Tab) 1 tab PO Q4 PRN PRN Reason: Pain, severe (8-10) Stop: 09/23/18 14:05 Last Admin: 09/20/18 23:32 Dose: 1 tab Pravastatin Sodium (Pravachol) 20 mg PO [facility] Last Admin: 09/20/18 21:14 Dose: 20 mg Pyridoxine HCl (Vitamin B6 50 Mg Tab) 50 mg PO [facility] Last Admin: 09/20/18 22:52 Dose: 50 mg - Labs Labs: 09/21/18 05:45 09/21/18 05:45 PT 15.1 Seconds (9.8-13.1) H 09/19/18 14:26 INR 1.3 09/19/18 14:26 APTT 26.2 Seconds (25.6-37.1) 09/19/18 14:26 - Constitutional Appears: Non-toxic, No Acute Distress - Head Exam Head Exam: ATRAUMATIC, NORMOCEPHALIC - Eye Exam Eye Exam: Normal appearance Pupil Exam: NORMAL ACCOMODATION - Respiratory Exam Respiratory Exam: Clear to Ausculation Bilateral, NORMAL BREATHING PATTERN - Cardiovascular Exam Cardiovascular Exam: REGULAR RHYTHM - GI/Abdominal Exam GI & Abdominal Exam: Soft, Normal Bowel Sounds - Extremities Exam Additional comments: L foot dressing C/D/I No strikethrough appreciated - Neurological Exam Neurological Exam: Alert, Awake, Oriented x3 - Psychiatric Exam Psychiatric exam: Normal Affect, Normal Mood - Skin Skin Exam: Warm Assessment and Plan - Assessment and Plan (Free Text) Assessment: 53 year old male patient, with PMHx of DM and HLD, admitted for sepsis. POD#2 L foot I&D. Plan: 1. Sepsis secondary to left foot ulceration with clinical OM - POD#2 Left foot I&D with removal of necrotic bone and soft tissue - Afebrile, leukocytosis resolved, ESR 110 - Podiatry consult: Dr. Azzolini - ID consult Dr. Cervantes, [facility] appreciated - PICC line ordered - C/w pain management - C/w Vanco/Zosyn, await intra-op wound cultures final report; gram + prelim - Pre-op wound culture: staph aureus - Blood culture (2/6); no growth after 24 hrs (x2) - Blood culture (2/5); staph aureus (x1), no growth after 24 hrs (x1) - CXR; no active pulmonary disease 2. Mild acute blood loss anemia and dilution anemia - Hgb 12 on admission, 10.3 today - Continue to monitor 3. Hyponatremia - 127 today - Most likely dilutional - Continue to monitor 4. DMII - Accuchecks - continue with medium dose sliding scale 5. HLD - C/w pravastatin 6. Azotemia - BUN 34 on admission, BUN 15 today; resolving - Most likely prerenal - Improving with IVF 7. Diabetic neuropathy - C/w cymbalta and lamictal 8. DVT prophylaxis - SCDs - Lovenox 40mg SC QD 9. Code status -Full code
[2018-09-21] MEDS: Silver Sulfadiazine 1% Cream (20 gm) TOP SCH (11:35)
--- NOTE | 2018-09-21 12:45 | CP.PCM.PN ---
Subjective - Date & Time of Evaluation Date of Evaluation: 09/21/18 Time of Evaluation: 12:45 - Subjective Subjective: ID Note- Pt. seen and examined today. pt. denies any complaints. feels better. Objective - Vital Signs/Intake and Output Vital Signs (last 24 hours): Temp Pulse Resp BP Pulse Ox 98 F 71 20 108/59 L 98 09/21/18 09:00 09/21/18 09:00 09/21/18 09:00 09/21/18 09:00 09/21/18 09:00 - Medications Medications: Current Medications Acetaminophen (Tylenol 325mg Tab) 650 mg PO Q6 PRN PRN Reason: Pain, Mild (1-3) Dextrose (Dextrose 50% Inj) 0 ml IV STAT PRN; Protocol PRN Reason: Hypoglycemia Protocol Dextrose (Dextrose 50% Inj) 50 ml IVP ONCE PRN PRN Reason: Hypoglycemia Dextrose (Glutose 15) 0 gm PO ONCE PRN; Protocol PRN Reason: Hypoglycemia Protocol Duloxetine HCl (Cymbalta) 60 mg PO HS [facility] Last Admin: 09/20/18 21:14 Dose: 60 mg Enoxaparin Sodium (Lovenox) 40 mg SC DAILY [facility]; Protocol Last Admin: 09/21/18 08:36 Dose: 40 mg Glucagon (Glucagen Diagnostic Kit) 0 mg IM STAT PRN; Protocol PRN Reason: Hypoglycemia Protocol Piperacillin Sod/Tazobactam (Sod 3.375 gm/ Sodium Chloride) 100 mls @ 100 mls/hr IVPB Q6 [facility]; Protocol Last Admin: 09/21/18 09:01 Dose: 100 mls/hr Lactated Ringer's (Lactated Ringer's) 1,000 mls @ 100 mls/hr IV .Q10H [facility] Last Admin: 09/20/18 17:49 Dose: 100 mls/hr Vancomycin HCl 1,500 mg/ (Sodium Chloride) 500 mls @ 250 mls/hr IVPB Q12H [facility]; Protocol Last Admin: 09/21/18 10:00 Dose: 250 mls/hr Insulin Human Regular (Humulin R) 0 units SC ACHS [facility]; Protocol Last Admin: 09/21/18 08:37 Dose: 2 units Ketorolac Tromethamine (Toradol) 30 mg IVP Q6 PRN PRN Reason: Pain, moderate (4-7) Lamotrigine (Lamictal) 25 mg PO Q12 [facility] Last Admin: 09/21/18 08:36 Dose: 25 mg Oxycodone/Acetaminophen (Percocet 5/325 Mg Tab) 1 tab PO Q4 PRN PRN Reason: Pain, severe (8-10) Stop: 09/23/18 14:05 Last Admin: 09/20/18 23:32 Dose: 1 tab Pravastatin Sodium (Pravachol) 20 mg PO [facility] Last Admin: 09/20/18 21:14 Dose: 20 mg Pyridoxine HCl (Vitamin B6 50 Mg Tab) 50 mg PO [facility] Last Admin: 09/20/18 22:52 Dose: 50 mg Silver Sulfadiazine (Silvadene 1% 20 Gm) 0 ea TOP DAILY [facility] Last Admin: 09/21/18 11:35 Dose: Not Given - Labs Labs: - Additional Findings Additional findings: - Constitutional Appears: No Acute Distress - Head Exam Head Exam: ATRAUMATIC - Eye Exam Eye Exam: EOMI - ENT Exam ENT Exam: Normal Oropharynx - Neck Exam Neck exam: Positive for: Full Rom - Respiratory Exam Respiratory Exam: Clear to Auscultation Bilateral, NORMAL BREATHING PATTERN - Cardiovascular Exam Cardiovascular Exam: RRR, +S1, +S2 - GI/Abdominal Exam GI & Abdominal Exam: Normal Bowel Sounds, Soft Additional comments: NT, ND - Extremities Exam Additional comments: left foot plantar ulcer with packing in place, surrounding edema nad erythema is much improved nomalodor - Neurological Exam Neurological exam: Alert, Oriented x 3 Laboratory Results - last 72 hr 09/19/18 09/19/18 09/19/18 14:26 14:26 14:26 WBC 13.8 H RBC 4.10 L Hgb 12.3 Hct 36.7 MCV 89.6 MCH 30.0 MCHC 33.5 RDW 13.1 Plt Count 189 MPV 9.8 Neut % (Auto) 81.8 H Lymph % (Auto) 7.0 L [place] % (Auto) 10.8 H Eos % (Auto) 0.2 Baso % (Auto) 0.2 Neut # (Auto) 11.3 H Lymph # (Auto) 1.0 [place] # (Auto) 1.5 H Eos # (Auto) 0.0 Baso # (Auto) 0.0 Neutrophils % (Manual) 75 Band Neutrophils % 2 Lymphocytes % (Manual) 8 L Reactive Lymphs % 2 H Monocytes % (Manual) 12 H Basophils % (Manual) 1 Platelet Estimate Normal RBC Morphology Normal ESR 95 H PT 15.1 H INR 1.3 APTT 26.2 pO2 VBG pH VBG pCO2 VBG HCO3 VBG Total CO2 VBG O2 Sat (Calc) VBG Base Excess VBG Potassium Glucose Lactate FiO2 Sodium 134 Potassium 5.3 H Chloride 94 L Carbon Dioxide 24 Anion Gap 21 H BUN 34 H Creatinine 0.7 L Est GFR ( Amer) > 60 Est GFR (Non-Af Amer) > 60 POC Glucose (mg/dL) Random Glucose 246 H Lactic Acid Calcium 9.3 Phosphorus Magnesium Total Bilirubin AST ALT Alkaline Phosphatase Total Protein Albumin Globulin Albumin/Globulin Ratio Venous Blood Potassium Vancomycin Trough Blood Type Blood Type Confirm Antibody Screen BBK History Checked 09/19/18 09/19/18 09/19/18 14:26 14:37 15:04 WBC RBC Hgb Hct MCV MCH MCHC RDW Plt Count MPV Neut % (Auto) Lymph % (Auto) [place] % (Auto) Eos % (Auto) Baso % (Auto) Neut # (Auto) Lymph # (Auto) [place] # (Auto) Eos # (Auto) Baso # (Auto) Neutrophils % (Manual) Band Neutrophils % Lymphocytes % (Manual) Reactive Lymphs % Monocytes % (Manual) Basophils % (Manual) Platelet Estimate RBC Morphology ESR PT INR APTT pO2 20 L VBG pH 7.40 VBG pCO2 40 VBG HCO3 23.2 VBG Total CO2 26.0 VBG O2 Sat (Calc) 45.0 VBG Base Excess 0.0 VBG Potassium 5.0 Glucose 259 H Lactate 3.8 H FiO2 21.0 Sodium 129.0 L Potassium Chloride 101.0 Carbon Dioxide Anion Gap BUN Creatinine Est GFR ( Amer) Est GFR (Non-Af Amer) POC Glucose (mg/dL) Random Glucose Lactic Acid Calcium Phosphorus Magnesium Total Bilirubin AST ALT Alkaline Phosphatase Total Protein Albumin Globulin Albumin/Globulin Ratio Venous Blood Potassium 5.0 Vancomycin Trough Blood Type AB POSITIVE Blood Type Confirm AB POSITIVE Antibody Screen Negative BBK History Checked No verified bt 09/19/18 09/19/18 09/19/18 17:40 21:21 22:28 WBC RBC Hgb Hct MCV MCH MCHC RDW Plt Count MPV Neut % (Auto) Lymph % (Auto) [place] % (Auto) Eos % (Auto) Baso % (Auto) Neut # (Auto) Lymph # (Auto) [place] # (Auto) Eos # (Auto) Baso # (Auto) Neutrophils % (Manual) Band Neutrophils % Lymphocytes % (Manual) Reactive Lymphs % Monocytes % (Manual) Basophils % (Manual) Platelet Estimate RBC Morphology ESR PT INR APTT pO2 VBG pH VBG pCO2 VBG HCO3 VBG Total CO2 VBG O2 Sat (Calc) VBG Base Excess VBG Potassium Glucose Lactate FiO2 Sodium Potassium Chloride Carbon Dioxide Anion Gap BUN Creatinine Est GFR ( Amer) Est GFR (Non-Af Amer) POC Glucose (mg/dL) 216 H 139 H 156 H Random Glucose Lactic Acid Calcium Phosphorus Magnesium Total Bilirubin AST ALT Alkaline Phosphatase Total Protein Albumin Globulin Albumin/Globulin Ratio Venous Blood Potassium Vancomycin Trough Blood Type Blood Type Confirm Antibody Screen BBK History Checked 09/20/18 09/20/18 09/20/18 03:15 03:15 03:15 WBC 9.3 RBC 3.61 L Hgb 10.7 L Hct 32.0 L MCV 88.6 MCH 29.8 MCHC 33.6 RDW 12.6 Plt Count 153 MPV Neut % (Auto) Lymph % (Auto) [place] % (Auto) Eos % (Auto) Baso % (Auto) Neut # (Auto) Lymph # (Auto) [place] # (Auto) Eos # (Auto) Baso # (Auto) Neutrophils % (Manual) Band Neutrophils % Lymphocytes % (Manual) Reactive Lymphs % Monocytes % (Manual) Basophils % (Manual) Platelet Estimate RBC Morphology ESR PT INR APTT pO2 VBG pH VBG pCO2 VBG HCO3 VBG Total CO2 VBG O2 Sat (Calc) VBG Base Excess VBG Potassium Glucose Lactate FiO2 Sodium 129 L Potassium 4.4 Chloride 98 Carbon Dioxide 26 Anion Gap 9 L BUN 21 H Creatinine 0.7 L Est GFR ( Amer) > 60 Est GFR (Non-Af Amer) > 60 POC Glucose (mg/dL) Random Glucose 199 H Lactic Acid 0.8 Calcium 8.3 L Phosphorus Magnesium Total Bilirubin AST ALT Alkaline Phosphatase Total Protein Albumin Globulin Albumin/Globulin Ratio Venous Blood Potassium Vancomycin Trough Blood Type Blood Type Confirm Antibody Screen BBK History Checked 09/20/18 09/20/18 09/20/18 05:39 10:55 15:49 WBC RBC Hgb Hct MCV MCH MCHC RDW Plt Count MPV Neut % (Auto) Lymph % (Auto) [place] % (Auto) Eos % (Auto) Baso % (Auto) Neut # (Auto) Lymph # (Auto) [place] # (Auto) Eos # (Auto) Baso # (Auto) Neutrophils % (Manual) Band Neutrophils % Lymphocytes % (Manual) Reactive Lymphs % Monocytes % (Manual) Basophils % (Manual) Platelet Estimate RBC Morphology ESR PT INR APTT pO2 VBG pH VBG pCO2 VBG HCO3 VBG Total CO2 VBG O2 Sat (Calc) VBG Base Excess VBG Potassium Glucose Lactate FiO2 Sodium Potassium Chloride Carbon Dioxide Anion Gap BUN Creatinine Est GFR ( Amer) Est GFR (Non-Af Amer) POC Glucose (mg/dL) 163 H 302 H 232 H Random Glucose Lactic Acid Calcium Phosphorus Magnesium Total Bilirubin AST ALT Alkaline Phosphatase Total Protein Albumin Globulin Albumin/Globulin Ratio Venous Blood Potassium Vancomycin Trough Blood Type Blood Type Confirm Antibody Screen BBK History Checked 09/20/18 09/21/18 09/21/18 21:38 05:42 05:45 WBC RBC Hgb Hct MCV MCH MCHC RDW Plt Count MPV Neut % (Auto) Lymph % (Auto) [place] % (Auto) Eos % (Auto) Baso % (Auto) Neut # (Auto) Lymph # (Auto) [place] # (Auto) Eos # (Auto) Baso # (Auto) Neutrophils % (Manual) Band Neutrophils % Lymphocytes % (Manual) Reactive Lymphs % Monocytes % (Manual) Basophils % (Manual) Platelet Estimate RBC Morphology ESR PT INR APTT pO2 VBG pH VBG pCO2 VBG HCO3 VBG Total CO2 VBG O2 Sat (Calc) VBG Base Excess VBG Potassium Glucose Lactate FiO2 Sodium Potassium Chloride Carbon Dioxide Anion Gap BUN Creatinine Est GFR ( Amer) Est GFR (Non-Af Amer) POC Glucose (mg/dL) 206 H 168 H Random Glucose Lactic Acid Calcium Phosphorus Magnesium Total Bilirubin AST ALT Alkaline Phosphatase Total Protein Albumin Globulin Albumin/Globulin Ratio Venous Blood Potassium Vancomycin Trough 5.0 Blood Type Blood Type Confirm Antibody Screen BBK History Checked 09/21/18 09/21/18 09/21/18 05:45 05:45 10:41 WBC 6.3 RBC 3.42 L Hgb 10.3 L Hct 30.4 L MCV 89.1 MCH 30.1 MCHC 33.8 RDW 13.1 Plt Count 137 MPV Neut % (Auto) Lymph % (Auto) [place] % (Auto) Eos % (Auto) Baso % (Auto) Neut # (Auto) Lymph # (Auto) [place] # (Auto) Eos # (Auto) Baso # (Auto) Neutrophils % (Manual) Band Neutrophils % Lymphocytes % (Manual) Reactive Lymphs % Monocytes % (Manual) Basophils % (Manual) Platelet Estimate RBC Morphology ESR 110 H PT INR APTT pO2 VBG pH VBG pCO2 VBG HCO3 VBG Total CO2 VBG O2 Sat (Calc) VBG Base Excess VBG Potassium Glucose Lactate FiO2 Sodium 137 Potassium 4.5 Chloride 98 Carbon Dioxide 29 Anion Gap 15 BUN 15 Creatinine 0.7 L Est GFR ( Amer) > 60 Est GFR (Non-Af Amer) > 60 POC Glucose (mg/dL) 305 H Random Glucose 164 H Lactic Acid Calcium 8.6 Phosphorus 3.1 Magnesium 2.0 Total Bilirubin 0.5 AST 26 ALT 32 Alkaline Phosphatase 69 Total Protein 6.6 Albumin 3.1 L Globulin 3.5 Albumin/Globulin Ratio 0.9 L Venous Blood Potassium Vancomycin Trough Blood Type Blood Type Confirm Antibody Screen BBK History Checked 09/21/18 15:57 WBC RBC Hgb Hct MCV MCH MCHC RDW Plt Count MPV Neut % (Auto) Lymph % (Auto) [place] % (Auto) Eos % (Auto) Baso % (Auto) Neut # (Auto) Lymph # (Auto) [place] # (Auto) Eos # (Auto) Baso # (Auto) Neutrophils % (Manual) Band Neutrophils % Lymphocytes % (Manual) Reactive Lymphs % Monocytes % (Manual) Basophils % (Manual) Platelet Estimate RBC Morphology ESR PT INR APTT pO2 VBG pH VBG pCO2 VBG HCO3 VBG Total CO2 VBG O2 Sat (Calc) VBG Base Excess VBG Potassium Glucose Lactate FiO2 Sodium Potassium Chloride Carbon Dioxide Anion Gap BUN Creatinine Est GFR ( Amer) Est GFR (Non-Af Amer) POC Glucose (mg/dL) 189 H Random Glucose Lactic Acid Calcium Phosphorus Magnesium Total Bilirubin AST ALT Alkaline Phosphatase Total Protein Albumin Globulin Albumin/Globulin Ratio Venous Blood Potassium Vancomycin Trough Blood Type Blood Type Confirm Antibody Screen BBK History Checked Microbiology 09/19/18 15:00 Blood-Venous Blood Culture - Preliminary Gram Pos Cocci In Clusters 09/19/18 15:00 Blood-Venous Gram Stain - Final 09/19/18 14:26 Blood-Venous Blood Culture - Preliminary Gram Pos Cocci In Clusters 09/19/18 14:26 Blood-Venous Gram Stain - Final 09/19/18 17:00 Foot - Left Gram Stain - Final 09/19/18 17:00 Foot - Left Wound Culture - Final Staphylococcus Aureus 09/19/18 08:51 Other: Please Indicate Gram Stain - Final 09/19/18 08:51 Other: Please Indicate Wound Culture - Preliminary Gram Positive Cocci 09/19/18 08:51 Other: Please Indicate Gram Stain - Final 09/19/18 08:51 Other: Please Indicate Wound Culture - Preliminary Gram Positive Cocci 09/20/18 Unknown Blood Blood Culture - Preliminary NO GROWTH AFTER 24 HOURS 09/20/18 Unknown Blood Blood Culture - Preliminary NO GROWTH AFTER 24 HOURS Assessment and Plan (1) Cellulitis Status: Acute (2) Non-healing ulcer of left foot Status: Chronic (3) Diabetes Status: Chronic - Assessment and Plan (Free Text) Assessment: A/P- 53 year old male with DM II, nonhealing left foot ulcer admitted with edema and erythema in the left foot and leg c/w cellulitis and possible OM. POD #2 pt. is s/p left foot incision and drainage of the abscess and resection of tibial and fibular sesamoid of the first metatarsal by podiatry afebrile leukocytosis has resolved. prelim wound cx- MSSA blood cx- GPC x 2 high ESR Plan- continue with IV vancomycin day #3 for both GPC bacteremia and MSA foot infection. keep vanco trough between 10-15. continue with zodyn as well for now day #3. will need exterminator IV abx at least 4 weeks in light of OM and bacteremia.
[2018-09-21] MEDS: Lactated Ringer's 1,000 ML IV SCH (16:23)
[2018-09-21] MEDS ORDERED: Patient's Own Med (Glyburide/Metformin Hcl [Glyburide-Metformin 2.5-500 Mg] 1 TAB) PO SCH (18:00)
[2018-09-21] MEDS: Pravastatin Sodium 20 MG TAB PO SCH (21:16)
[2018-09-22] MEDS: Piperacillin/Tazobact 3.375 GM in Sodium Chloride 0.9% 100 ML IVPB SCH ×3 (05:22→16:41)
[2018-09-22 06:01] LABS: MEAN CELL VOLUME 89.7 fl (80.0-94.0); MEAN CORPUSCULAR HGB CONC 33.4 g/dL (33.0-37.0); RBC 3.67 Mil/uL (4.40-5.90); RED CELL DISTRIBUTION WIDTH 13.4 % (11.5-14.5); WHITE BLOOD COUNT 5.2 K/uL (4.8-10.8)
[2018-09-22 06:16] LABS: BLOOD UREA NITROGEN 13 mg/dl (9-20); CALCIUM 9.2 mg/dL (8.4-10.2); GFR NON-AFRICAN AMERICAN > 60
--- NOTE | 2018-09-22 07:30 | CP.PCM.PN ---
Subjective - Date & Time of Evaluation Date of Evaluation: 09/22/18 Time of Evaluation: 07:27 - Subjective Subjective: Podiatry progress note for Dr. Henley, 53yo male, history of diabetes, seen at bedside 3 day s/p I&D of Left foot abscess and resection of tibial and fibular sesamoid of the first metatarsal. Patient is AAOx3 and in NAD. Patient denies any decrease in appeitite, chills, vomiting, fever, chest pain, shortness of breath, weakness or numbness in his lower extremities Objective - Vital Signs/Intake and Output Vital Signs (last 24 hours): Temp Pulse Resp BP Pulse Ox 98.0 F 77 20 108/58 L 98 09/21/18 23:44 09/21/18 23:44 09/21/18 23:44 09/21/18 23:44 09/21/18 23:44 - Medications Medications: Current Medications Acetaminophen (Tylenol 325mg Tab) 650 mg PO Q6 PRN PRN Reason: Pain, Mild (1-3) Dextrose (Dextrose 50% Inj) 0 ml IV STAT PRN; Protocol PRN Reason: Hypoglycemia Protocol Dextrose (Dextrose 50% Inj) 50 ml IVP ONCE PRN PRN Reason: Hypoglycemia Dextrose (Glutose 15) 0 gm PO ONCE PRN; Protocol PRN Reason: Hypoglycemia Protocol Duloxetine HCl (Cymbalta) 60 mg PO HS [facility] Last Admin: 09/21/18 21:17 Dose: 60 mg Enoxaparin Sodium (Lovenox) 40 mg SC DAILY [facility]; Protocol Last Admin: 09/21/18 08:36 Dose: 40 mg Glucagon (Glucagen Diagnostic Kit) 0 mg IM STAT PRN; Protocol PRN Reason: Hypoglycemia Protocol Glyburide (Micronase) 2.5 mg PO QPM [facility] Last Admin: 09/21/18 17:24 Dose: 2.5 mg Piperacillin Sod/Tazobactam (Sod 3.375 gm/ Sodium Chloride) 100 mls @ 100 mls/hr IVPB Q6 [facility]; Protocol Last Admin: 09/22/18 05:22 Dose: 100 mls/hr Lactated Ringer's (Lactated Ringer's) 1,000 mls @ 100 mls/hr IV .Q10H [facility] Last Admin: 09/21/18 16:23 Dose: Not Given Vancomycin HCl 1,500 mg/ (Sodium Chloride) 500 mls @ 250 mls/hr IVPB Q12@1000,2200 [facility]; Protocol Last Admin: 09/21/18 21:26 Dose: 250 mls/hr Insulin Human Regular (Humulin R) 0 units SC ACHS [facility]; Protocol Last Admin: 09/21/18 22:06 Dose: Not Given Ketorolac Tromethamine (Toradol) 30 mg IVP Q6 PRN PRN Reason: Pain, moderate (4-7) Lamotrigine (Lamictal) 25 mg PO Q12 [facility] Last Admin: 09/21/18 21:16 Dose: 25 mg Metformin HCl (Glucophage) 500 mg PO QPM [facility] Last Admin: 09/21/18 17:24 Dose: 500 mg Oxycodone/Acetaminophen (Percocet 5/325 Mg Tab) 1 tab PO Q4 PRN PRN Reason: Pain, severe (8-10) Stop: 09/23/18 14:05 Last Admin: 09/20/18 23:32 Dose: 1 tab Pravastatin Sodium (Pravachol) [address] [facility] Last Admin: 09/21/18 21:16 Dose: 20 mg Pyridoxine HCl (Vitamin B6 50 Mg Tab) [address] [facility] Last Admin: 09/21/18 21:16 Dose: 50 mg Silver Sulfadiazine (Silvadene 1% 20 Gm) 0 ea TOP DAILY [facility] Last Admin: 09/21/18 11:35 Dose: Not Given - Labs Labs: 09/22/18 05:30 09/22/18 05:30 PT 15.1 Seconds (9.8-13.1) H 09/19/18 14:26 INR 1.3 09/19/18 14:26 APTT 26.2 Seconds (25.6-37.1) 09/19/18 14:26 - Constitutional Appears: Well, Non-toxic, No Acute Distress - Head Exam Head Exam: ATRAUMATIC - Extremities Exam Additional comments: Left lower extremity exam: Vascular: DP/PT 2/4, CFT <3 secs x 10, TG warm to warm, edema and erythema noted on the dorsal aspect of the foot and anterior aspect of leg to the knee joint(resolving proximally) Derm: Surigical Incision noted connecting the Ulcer noted at the base of 1st MPJ measuring approximately 2cm x 2cm with fibrotic base. Ulcer is probe to bone, minimal active serosanguinous drainage. Retention sutures noted at the incisino site with packing intact. Erythema and edema noted on the dorsal aspect of the foot extending distally to the knee joint( resolving proximally) ortho: no pain with palpation of the ulcer, minimal palpation with palpation of the leg diffusely neuro: protective sensation diminished 0/4. - Neurological Exam Neurological Exam: Alert, Awake, Oriented x3 Assessment and Plan - Assessment and Plan (Free Text) Assessment: 53 yo male seen and evaluated 2 day s/p Left foot I&D and resection of tibial and fibular sesamoid of the first metatarsal Plan: Patient seen and evaluated Chart, labs and vitals reviewed; WBC 5.2, afebrile. Left foot x-rays reviewed: erosions noted to the distal aspect of the first metatarsal and proximal aspect of first proximal phalanx, no subcutaneous emphysema noted Site cleansed with saline and dressed with SSD, DSD and BIANKA Wound cultures: staph aureus Blood cultures: gram postiive cocci in clusters Intra-op Bone pathology pending PT on board. ID consult ordered; recs appreciated. 4 weeks of IV antibiotic. PICC line orderd Podiatry will continue to follow the patient
[2018-09-22] MEDS: Insulin Regular 100 units/ml SC SCH ×5 (08:30→21:30)
--- NOTE | 2018-09-22 09:09 | CP.PCM.PN ---
Subjective - Date & Time of Evaluation Date of Evaluation: 09/22/18 Time of Evaluation: 09:09 - Subjective Subjective: Id Note- Patient seen and examined today. He states he feels much better . denies any fever. Objective - Vital Signs/Intake and Output Vital Signs (last 24 hours): Temp Pulse Resp BP Pulse Ox 97.9 F 70 20 124/64 99 09/22/18 08:01 09/22/18 08:01 09/22/18 08:01 09/22/18 08:01 09/22/18 08:01 - Medications Medications: Current Medications Acetaminophen (Tylenol 325mg Tab) 650 mg PO Q6 PRN PRN Reason: Pain, Mild (1-3) Dextrose (Dextrose 50% Inj) 0 ml IV STAT PRN; Protocol PRN Reason: Hypoglycemia Protocol Dextrose (Dextrose 50% Inj) 50 ml IVP ONCE PRN PRN Reason: Hypoglycemia Dextrose (Glutose 15) 0 gm PO ONCE PRN; Protocol PRN Reason: Hypoglycemia Protocol Duloxetine HCl (Cymbalta) 60 mg PO HS [facility] Last Admin: 09/21/18 21:17 Dose: 60 mg Enoxaparin Sodium (Lovenox) 40 mg SC DAILY [facility]; Protocol Last Admin: 09/21/18 08:36 Dose: 40 mg Glucagon (Glucagen Diagnostic Kit) 0 mg IM STAT PRN; Protocol PRN Reason: Hypoglycemia Protocol Glyburide (Micronase) 2.5 mg PO QPM [facility] Last Admin: 09/21/18 17:24 Dose: 2.5 mg Piperacillin Sod/Tazobactam (Sod 3.375 gm/ Sodium Chloride) 100 mls @ 100 mls/hr IVPB Q6 [facility]; Protocol Last Admin: 09/22/18 05:22 Dose: 100 mls/hr Lactated Ringer's (Lactated Ringer's) 1,000 mls @ 100 mls/hr IV .Q10H [facility] Last Admin: 09/21/18 16:23 Dose: Not Given Vancomycin HCl 1,500 mg/ (Sodium Chloride) 500 mls @ 250 mls/hr IVPB Q12@1000,2200 [facility]; Protocol Last Admin: 09/21/18 21:26 Dose: 250 mls/hr Insulin Human Regular (Humulin R) 0 units SC ACHS [facility]; Protocol Last Admin: 09/21/18 22:06 Dose: Not Given Ketorolac Tromethamine (Toradol) 30 mg IVP Q6 PRN PRN Reason: Pain, moderate (4-7) Lamotrigine (Lamictal) 25 mg PO Q12 [facility] Last Admin: 09/21/18 21:16 Dose: 25 mg Metformin HCl (Glucophage) 500 mg PO QPM [facility] Last Admin: 09/21/18 17:24 Dose: 500 mg Oxycodone/Acetaminophen (Percocet 5/325 Mg Tab) 1 tab PO Q4 PRN PRN Reason: Pain, severe (8-10) Stop: 09/23/18 14:05 Last Admin: 09/20/18 23:32 Dose: 1 tab Pravastatin Sodium (Pravachol) 20 mg PO HS [facility] Last Admin: 09/21/18 21:16 Dose: 20 mg Pyridoxine HCl (Vitamin B6 50 Mg Tab) 50 mg PO HS [facility] Last Admin: 09/21/18 21:16 Dose: 50 mg Silver Sulfadiazine (Silvadene 1% 20 Gm) 0 ea TOP DAILY [facility] Last Admin: 09/21/18 11:35 Dose: Not Given - Labs Labs: - Additional Findings Additional findings: - Constitutional Appears: No Acute Distress - Head Exam Head Exam: ATRAUMATIC - Eye Exam Eye Exam: EOMI - ENT Exam ENT Exam: Normal Oropharynx - Neck Exam Neck exam: Positive for: Full Rom - Respiratory Exam Respiratory Exam: Clear to Auscultation Bilateral, NORMAL BREATHING PATTERN - Cardiovascular Exam Cardiovascular Exam: RRR, +S1, +S2 - GI/Abdominal Exam GI & Abdominal Exam: Normal Bowel Sounds, Soft Additional comments: NT, ND - Extremities Exam Additional comments: left foot plantar ulcer with packing in place, surrounding edema and erythema is much improved - Neurological Exam Neurological exam: Alert, Oriented x 3 Laboratory Results - last 72 hr 09/19/18 09/19/18 09/19/18 14:26 17:40 21:21 WBC RBC Hgb Hct MCV MCH MCHC RDW Plt Count ESR 95 H Sodium Potassium Chloride Carbon Dioxide Anion Gap BUN Creatinine Est GFR ( Amer) Est GFR (Non-Af Amer) POC Glucose (mg/dL) 216 H 139 H Random Glucose Lactic Acid Calcium Phosphorus Magnesium Total Bilirubin AST ALT Alkaline Phosphatase Total Protein Albumin Globulin Albumin/Globulin Ratio Vancomycin Trough 09/19/18 09/20/18 09/20/18 22:28 03:15 03:15 WBC 9.3 RBC 3.61 L Hgb 10.7 L Hct 32.0 L MCV 88.6 MCH 29.8 MCHC 33.6 RDW 12.6 Plt Count 153 ESR Sodium 129 L Potassium 4.4 Chloride 98 Carbon Dioxide 26 Anion Gap 9 L BUN 21 H Creatinine 0.7 L Est GFR ( Amer) > 60 Est GFR (Non-Af Amer) > 60 POC Glucose (mg/dL) 156 H Random Glucose 199 H Lactic Acid Calcium 8.3 L Phosphorus Magnesium Total Bilirubin AST ALT Alkaline Phosphatase Total Protein Albumin Globulin Albumin/Globulin Ratio Vancomycin Trough 09/20/18 09/20/18 09/20/18 03:15 05:39 10:55 WBC RBC Hgb Hct MCV MCH MCHC RDW Plt Count ESR Sodium Potassium Chloride Carbon Dioxide Anion Gap BUN Creatinine Est GFR ( Amer) Est GFR (Non-Af Amer) POC Glucose (mg/dL) 163 H 302 H Random Glucose Lactic Acid 0.8 Calcium Phosphorus Magnesium Total Bilirubin AST ALT Alkaline Phosphatase Total Protein Albumin Globulin Albumin/Globulin Ratio Vancomycin Trough 09/20/18 09/20/18 09/21/18 15:49 21:38 05:42 WBC RBC Hgb Hct MCV MCH MCHC RDW Plt Count ESR Sodium Potassium Chloride Carbon Dioxide Anion Gap BUN Creatinine Est GFR ( Amer) Est GFR (Non-Af Amer) POC Glucose (mg/dL) 232 H 206 H 168 H Random Glucose Lactic Acid Calcium Phosphorus Magnesium Total Bilirubin AST ALT Alkaline Phosphatase Total Protein Albumin Globulin Albumin/Globulin Ratio Vancomycin Trough 09/21/18 09/21/18 09/21/18 05:45 05:45 05:45 WBC 6.3 RBC 3.42 L Hgb 10.3 L Hct 30.4 L MCV 89.1 MCH 30.1 MCHC 33.8 RDW 13.1 Plt Count 137 ESR 110 H Sodium 137 Potassium 4.5 Chloride 98 Carbon Dioxide 29 Anion Gap 15 BUN 15 Creatinine 0.7 L Est GFR ( Amer) > 60 Est GFR (Non-Af Amer) > 60 POC Glucose (mg/dL) Random Glucose 164 H Lactic Acid Calcium 8.6 Phosphorus 3.1 Magnesium 2.0 Total Bilirubin 0.5 AST 26 ALT 32 Alkaline Phosphatase 69 Total Protein 6.6 Albumin 3.1 L Globulin 3.5 Albumin/Globulin Ratio 0.9 L Vancomycin Trough 5.0 09/21/18 09/21/18 09/21/18 10:41 15:57 21:27 WBC RBC Hgb Hct MCV MCH MCHC RDW Plt Count ESR Sodium Potassium Chloride Carbon Dioxide Anion Gap BUN Creatinine Est GFR ( Amer) Est GFR (Non-Af Amer) POC Glucose (mg/dL) 305 H 189 H 163 H Random Glucose Lactic Acid Calcium Phosphorus Magnesium Total Bilirubin AST ALT Alkaline Phosphatase Total Protein Albumin Globulin Albumin/Globulin Ratio Vancomycin Trough 09/22/18 09/22/18 09/22/18 05:30 05:30 05:39 WBC 5.2 RBC 3.67 L Hgb 11.0 L Hct 32.9 L MCV 89.7 MCH 30.0 MCHC 33.4 RDW 13.4 Plt Count 176 ESR Sodium 137 Potassium 4.3 Chloride 97 L Carbon Dioxide 29 Anion Gap 15 BUN 13 Creatinine 0.6 L Est GFR ( Amer) > 60 Est GFR (Non-Af Amer) > 60 POC Glucose (mg/dL) 178 H Random Glucose 191 H Lactic Acid Calcium 9.2 Phosphorus Magnesium Total Bilirubin AST ALT Alkaline Phosphatase Total Protein Albumin Globulin Albumin/Globulin Ratio Vancomycin Trough 09/22/18 09/22/18 11:15 15:44 WBC RBC Hgb Hct MCV MCH MCHC RDW Plt Count ESR Sodium Potassium Chloride Carbon Dioxide Anion Gap BUN Creatinine Est GFR ( Amer) Est GFR (Non-Af Amer) POC Glucose (mg/dL) 295 H 231 H Random Glucose Lactic Acid Calcium Phosphorus Magnesium Total Bilirubin AST ALT Alkaline Phosphatase Total Protein Albumin Globulin Albumin/Globulin Ratio Vancomycin Trough Microbiology 09/20/18 Unknown Blood Blood Culture - Preliminary NO GROWTH AFTER 48 HOURS 09/19/18 08:51 Other: Please Indicate Gram Stain - Final 09/19/18 08:51 Other: Please Indicate Wound Culture - Final Staphylococcus Aureus 09/20/18 Unknown Blood Blood Culture - Preliminary NO GROWTH AFTER 48 HOURS 09/19/18 15:00 Blood-Venous Blood Culture - Final Staphylococcus Aureus 09/19/18 15:00 Blood-Venous Gram Stain - Final 09/19/18 08:51 Other: Please Indicate Gram Stain - Final 09/19/18 08:51 Other: Please Indicate Wound Culture - Final Staphylococcus Aureus 09/19/18 14:26 Blood-Venous Blood Culture - Final Staphylococcus Aureus 09/19/18 14:26 Blood-Venous Gram Stain - Final 09/19/18 17:00 Foot - Left Gram Stain - Final 09/19/18 17:00 Foot - Left Wound Culture - Final Staphylococcus Aureus Assessment and Plan (1) Cellulitis Status: Acute (2) Non-healing ulcer of left foot Status: Chronic (3) Diabetes Status: Chronic - Assessment and Plan (Free Text) Assessment: A/P- 53 year old male with DM II, nonhealing left foot ulcer admitted with edema and erythema in the left foot and leg c/w cellulitis and possible OM. POD #3 pt. is s/p left foot incision and drainage of the abscess and resection of tibial and fibular sesamoid of the first metatarsal by podiatry afebrile leukocytosis has resolved. OR wound cx- MSSA x 2 blood cx- MSSA x 2 repeat blood cx from 09/20/2018- neg x 2 bone path report- acute OM Plan- continue with IV vancomycin day #4 for both MSSA bacteremia and MSSA Om of left foot. keep vanco trough <20. d/c zosyn. 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 check TTE r/o any vegetations. since we now have 2 neg blood cx, patient can have picc line placement so that he can receive his VAncomyin as outpatient at home. vanco 1 gram IV BID at home. have vanco tough and creatinine checked once a week and keep vanco trough <20. advised patient to f/u closely with his muleser and to f/u with his PCP nad to f/u with me in office in 2 weeks. Patient verbalizes full understanding of all above and agrees with above plan of care.
--- NOTE | 2018-09-22 09:44 | CP.PCM.PN ---
Subjective - Date & Time of Evaluation Date of Evaluation: 09/22/18 Time of Evaluation: 09:44 - Subjective Subjective: Patient appears comfortable, having minimal pain in the left foot. Had dressing change done earlier by podiatry. He states that podiatry was pleased with appearance of surgical site. Has been stable with vital signs, remains afebrile. Accuchecks noted. Being followed closely by Infectious Disease. Pathology reports findings positive for osteomyelitis. Remains otherwise clinically stable both subjectively and objectively. 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 Will need continuous monitoring of vanco levels and renal function. Hopefully glycemic control will improve as infection resolves and he resumes his routine diet and medications. Objective - Vital Signs/Intake and Output Vital Signs (last 24 hours): Temp Pulse Resp BP Pulse Ox 97.9 F 70 20 124/64 99 09/22/18 08:01 09/22/18 08:01 09/22/18 08:01 09/22/18 08:01 09/22/18 08:01 - Medications Medications: Current Medications Acetaminophen (Tylenol 325mg Tab) 650 mg PO Q6 PRN PRN Reason: Pain, Mild (1-3) Dextrose (Dextrose 50% Inj) 0 ml IV STAT PRN; Protocol PRN Reason: Hypoglycemia Protocol Dextrose (Dextrose 50% Inj) 50 ml IVP ONCE PRN PRN Reason: Hypoglycemia Dextrose (Glutose 15) 0 gm PO ONCE PRN; Protocol PRN Reason: Hypoglycemia Protocol Duloxetine HCl (Cymbalta) 60 mg PO HS [facility] Last Admin: 09/21/18 21:17 Dose: 60 mg Enoxaparin Sodium (Lovenox) 40 mg SC DAILY [facility]; Protocol Last Admin: 09/21/18 08:36 Dose: 40 mg Glucagon (Glucagen Diagnostic Kit) 0 mg IM STAT PRN; Protocol PRN Reason: Hypoglycemia Protocol Glyburide (Micronase) 2.5 mg PO QPM [facility] Last Admin: 09/21/18 17:24 Dose: 2.5 mg Piperacillin Sod/Tazobactam (Sod 3.375 gm/ Sodium Chloride) 100 mls @ 100 mls/hr IVPB Q6 [facility]; Protocol Last Admin: 09/22/18 05:22 Dose: 100 mls/hr Lactated Ringer's (Lactated Ringer's) 1,000 mls @ 100 mls/hr IV .Q10H [facility] Last Admin: 09/21/18 16:23 Dose: Not Given Vancomycin HCl 1,500 mg/ (Sodium Chloride) 500 mls @ 250 mls/hr IVPB Q12@1000,2200 [facility]; Protocol Last Admin: 09/21/18 21:26 Dose: 250 mls/hr Insulin Human Regular (Humulin R) 0 units SC ACHS [facility]; Protocol Last Admin: 09/21/18 22:06 Dose: Not Given Ketorolac Tromethamine (Toradol) 30 mg IVP Q6 PRN PRN Reason: Pain, moderate (4-7) Lamotrigine (Lamictal) 25 mg PO Q12 [facility] Last Admin: 09/21/18 21:16 Dose: 25 mg Metformin HCl (Glucophage) 500 mg PO QPM [facility] Last Admin: 09/21/18 17:24 Dose: 500 mg Oxycodone/Acetaminophen (Percocet 5/325 Mg Tab) 1 tab PO Q4 PRN PRN Reason: Pain, severe (8-10) Stop: 09/23/18 14:05 Last Admin: 09/20/18 23:32 Dose: 1 tab Pravastatin Sodium (Pravachol) 20 mg PO HS [facility] Last Admin: 09/21/18 21:16 Dose: 20 mg Pyridoxine HCl (Vitamin B6 50 Mg Tab) 50 mg PO HS [facility] Last Admin: 09/21/18 21:16 Dose: 50 mg Silver Sulfadiazine (Silvadene 1% 20 Gm) 0 ea TOP DAILY [facility] Last Admin: 09/21/18 11:35 Dose: Not Given - Labs Labs: 09/22/18 05:30 09/22/18 05:30 PT 15.1 Seconds (9.8-13.1) H 09/19/18 14:26 INR 1.3 09/19/18 14:26 APTT 26.2 Seconds (25.6-37.1) 09/19/18 14:26 Assessment and Plan (1) Cellulitis Status: Acute (2) Osteomyelitis of foot Status: Acute (3) Non-healing ulcer of left foot Status: Chronic (4) Diabetes Status: Chronic (5) MGUS (monoclonal gammopathy of unknown significance) Status: Chronic (6) Mixed hyperlipidemia due to type 2 diabetes mellitus Status: Chronic
[2018-09-22] MEDS: Enoxaparin 40 mg Syringe SC SCH (10:00)
[2018-09-22] MEDS: Lactated Ringer's 1,000 ML IV SCH ×3 (13:48→19:30)
[2018-09-22] MEDS: Silver Sulfadiazine 1% Cream (20 gm) TOP SCH (13:51)
--- NOTE | 2018-09-22 14:16 | CP.PCM.PN ---
<RamonitaJaqueline - Last Filed: 09/22/18 14:22> Subjective - Date & Time of Evaluation Date of Evaluation: 09/22/18 Time of Evaluation: 14:16 - Subjective Subjective: Patient seen and evaluated this morning, resting comfortably. Patient states that he feels well today, and participated in physical therapy. He denies any acute events overnight. Pain is well controlled at this time. Denies N/V/F/SOB/CP. Objective - Vital Signs/Intake and Output Vital Signs (last 24 hours): Temp Pulse Resp BP Pulse Ox 97.9 F 70 20 124/64 99 09/22/18 08:01 09/22/18 08:01 09/22/18 08:01 09/22/18 08:01 09/22/18 08:01 - Medications Medications: Current Medications Acetaminophen (Tylenol 325mg Tab) 650 mg PO Q6 PRN PRN Reason: Pain, Mild (1-3) Dextrose (Dextrose 50% Inj) 0 ml IV STAT PRN; Protocol PRN Reason: Hypoglycemia Protocol Dextrose (Dextrose 50% Inj) 50 ml IVP ONCE PRN PRN Reason: Hypoglycemia Dextrose (Glutose 15) 0 gm PO ONCE PRN; Protocol PRN Reason: Hypoglycemia Protocol Duloxetine HCl (Cymbalta) 60 mg PO HS [facility] Last Admin: 09/21/18 21:17 Dose: 60 mg Enoxaparin Sodium (Lovenox) 40 mg SC DAILY [facility]; Protocol Last Admin: 09/22/18 10:00 Dose: 40 mg Glucagon (Glucagen Diagnostic Kit) 0 mg IM STAT PRN; Protocol PRN Reason: Hypoglycemia Protocol Glyburide (Micronase) 2.5 mg PO QPM [facility] Last Admin: 09/21/18 17:24 Dose: 2.5 mg Piperacillin Sod/Tazobactam (Sod 3.375 gm/ Sodium Chloride) 100 mls @ 100 mls/hr IVPB Q6 [facility]; Protocol Last Admin: 09/22/18 09:30 Dose: 100 mls/hr Lactated Ringer's (Lactated Ringer's) 1,000 mls @ 100 mls/hr IV .Q10H [facility] Last Admin: 09/22/18 13:48 Dose: Not Given Vancomycin HCl 1,500 mg/ (Sodium Chloride) 500 mls @ 250 mls/hr IVPB Q12@1000, 2200 [facility]; Protocol Last Admin: 09/21/18 21:26 Dose: 250 mls/hr Insulin Human Regular (Humulin R) 0 units SC ACHS [facility]; Protocol Last Admin: 09/22/18 14:03 Dose: 4 units Ketorolac Tromethamine (Toradol) 30 mg IVP Q6 PRN PRN Reason: Pain, moderate (4-7) Lamotrigine (Lamictal) 25 mg PO Q12 [facility] Last Admin: 09/22/18 10:00 Dose: 25 mg Metformin HCl (Glucophage) 500 mg PO QPM [facility] Last Admin: 09/21/18 17:24 Dose: 500 mg Oxycodone/Acetaminophen (Percocet 5/325 Mg Tab) 1 tab PO Q4 PRN PRN Reason: Pain, severe (8-10) Stop: 09/23/18 14:05 Last Admin: 09/20/18 23:32 Dose: 1 tab Pravastatin Sodium (Pravachol) 20 mg PO [facility] Last Admin: 09/21/18 21:16 Dose: 20 mg Pyridoxine HCl (Vitamin B6 50 Mg Tab) 50 mg PO [facility] Last Admin: 09/21/18 21:16 Dose: 50 mg Silver Sulfadiazine (Silvadene 1% 20 Gm) 0 ea TOP DAILY [facility] Last Admin: 09/22/18 13:51 Dose: Not Given - Labs Labs: 09/22/18 05:30 09/22/18 05:30 PT 15.1 Seconds (9.8-13.1) H 09/19/18 14:26 INR 1.3 09/19/18 14:26 APTT 26.2 Seconds (25.6-37.1) 09/19/18 14:26 - Constitutional Appears: Non-toxic, No Acute Distress - Head Exam Head Exam: ATRAUMATIC, NORMOCEPHALIC - Eye Exam Eye Exam: Normal appearance - Respiratory Exam Respiratory Exam: Clear to Ausculation Bilateral, NORMAL BREATHING PATTERN - Cardiovascular Exam Cardiovascular Exam: REGULAR RHYTHM - GI/Abdominal Exam GI & Abdominal Exam: Soft, Normal Bowel Sounds - Extremities Exam Additional comments: LE dressing C/D/I No strikethrough - Neurological Exam Neurological Exam: Alert, Awake, Oriented x3 - Psychiatric Exam Psychiatric exam: Normal Affect, Normal Mood - Skin Skin Exam: Warm Assessment and Plan - Assessment and Plan (Free Text) Assessment: 53 year old male patient, with PMHx of DM and HLD, admitted for sepsis. POD#2 L foot I&D. Plan: 1. Sepsis secondary to left foot ulceration with clinical OM - POD#3 Left foot I&D with removal of necrotic bone and soft tissue - Afebrile, leukocytosis resolved, ESR 110 - Podiatry consult: Dr. Henley - ID consult Dr. Cervantes, reccs appreciated - PICC line ordered - Echo ordered - C/w pain management - C/w Vanco/Zosyn, await intra-op wound cultures final report; staph aureus - Pre-op wound culture: staph aureus - Blood culture (2/6); no growth after 24 hrs (x2) - Blood culture (2/); staph aureus (x2) - CXR; no active pulmonary disease 2. Mild acute blood loss anemia and dilution anemia - Hgb 12 on admission, 11 today - Continue to monitor 3. Hyponatremia - 137 today; resolved - Most likely dilutional - Continue to monitor 4. DMII - Accuchecks - continue with medium dose sliding scale 5. HLD - C/w pravastatin 6. Azotemia - BUN 34 on admission, BUN 13 today; resolving - Most likely prerenal - Improving with IVF 7. Diabetic neuropathy - C/w cymbalta and lamictal 8. DVT prophylaxis - SCDs - Lovenox 40mg SC QD 9. Code status -Full code <Uma Shah - Last Filed: 09/22/18 18:32> Objective - Vital Signs/Intake and Output Vital Signs (last 24 hours): Temp Pulse Resp BP Pulse Ox 97.6 F 77 20 104/59 L 95 09/22/18 15:35 09/22/18 15:35 09/22/18 15:35 09/22/18 15:35 09/22/18 15:35 - Medications Medications: Current Medications Acetaminophen (Tylenol 325mg Tab) 650 mg PO Q6 PRN PRN Reason: Pain, Mild (1-3) Dextrose (Dextrose 50% Inj) 0 ml IV STAT PRN; Protocol PRN Reason: Hypoglycemia Protocol Dextrose (Dextrose 50% Inj) 50 ml IVP ONCE PRN PRN Reason: Hypoglycemia Dextrose (Glutose 15) 0 gm PO ONCE PRN; Protocol PRN Reason: Hypoglycemia Protocol Duloxetine HCl (Cymbalta) 60 mg PO HS [facility] Last Admin: 09/21/18 21:17 Dose: 60 mg Enoxaparin Sodium (Lovenox) 40 mg SC DAILY [facility]; Protocol Last Admin: 09/22/18 10:00 Dose: 40 mg Glucagon (Glucagen Diagnostic Kit) 0 mg IM STAT PRN; Protocol PRN Reason: Hypoglycemia Protocol Glyburide (Micronase) 2.5 mg PO QPM [facility] Last Admin: 09/22/18 17:56 Dose: 2.5 mg Lactated Ringer's (Lactated Ringer's) 1,000 mls @ 100 mls/hr IV .Q10H [facility] Last Admin: 09/22/18 16:38 Dose: 100 mls/hr Vancomycin HCl 1,500 mg/ (Sodium Chloride) 500 mls @ 250 mls/hr IVPB Q12@1000,2200 [facility]; Protocol Last Admin: 09/22/18 16:42 Dose: 250 mls/hr Insulin Human Regular (Humulin R) 0 units SC ACHS [facility]; Protocol Last Admin: 09/22/18 17:55 Dose: 3 units Ketorolac Tromethamine (Toradol) 30 mg IVP Q6 PRN PRN Reason: Pain, moderate (4-7) Lamotrigine (Lamictal) 25 mg PO Q12 [facility] Last Admin: 09/22/18 10:00 Dose: 25 mg Metformin HCl (Glucophage) 500 mg PO QPM [facility] Last Admin: 09/22/18 17:55 Dose: 500 mg Oxycodone/Acetaminophen (Percocet 5/325 Mg Tab) 1 tab PO Q4 PRN PRN Reason: Pain, severe (8-10) Stop: 09/23/18 14:05 Last Admin: 09/20/18 23:32 Dose: 1 tab Pravastatin Sodium (Pravachol) 20 mg PO HS [facility] Last Admin: 09/21/18 21:16 Dose: 20 mg Pyridoxine HCl (Vitamin B6 50 Mg Tab) 50 mg PO HS [facility] Last Admin: 09/21/18 21:16 Dose: 50 mg Silver Sulfadiazine (Silvadene 1% 20 Gm) 0 ea TOP DAILY [facility] Last Admin: 09/22/18 13:51 Dose: Not Given - Labs Labs: 09/22/18 05:30 09/22/18 05:30 PT 15.1 Seconds (9.8-13.1) H 09/19/18 14:26 INR 1.3 09/19/18 14:26 APTT 26.2 Seconds (25.6-37.1) 09/19/18 14:26 Attending/Attestation - Attestation I have personally seen and examined this patient.: Yes I have fully participated in the care of the patient.: Yes I have reviewed all pertinent clinical information, including history, physical exam and plan: Yes Notes (Text): Sepsis ( POA) sec to Left Foot Ulcer /Abscess and Osteomyelitis s/p I and D of abscess and resection of necrotic bone MSSA Bacteremia - pt on IV Vanco -Echo to r/o vegetation -ID recommends IV Vanco 1 gram q12 x 1 month - pt verbalized fear that he might not be able to do Home IV Infusion if head teller will only come 3x per week and not 2x per day. He does not want to be discharged home and would prefer to stay in the hospital or go to a facility even for a few days until he can do it by himself- will await Insurance approval. - PICC line placement -IR consulted
--- NOTE | 2018-09-22 18:23 | CARD ---
APPROVED REPORT Date of service: 09/22/2018 EXAM: Two-dimensional and M-mode echocardiogram with Doppler and color Doppler. Other Information Quality : GoodRhythm : NSR INDICATION Infection: Bacteremia 2D DIMENSIONS IVSd1.16 (0.7-1.1cm)LVDd4.94 (3.9-5.9cm) LVOT Diameter1.73 (1.8-2.4cm)PWd1.07 (0.7-1.1cm) IVSs1.56 (0.8-1.2cm)LVDs2.90 (2.5-4.0cm) FS (%) 41.4 %PWs1.77 (0.8-1.2cm) M-Mode DIMENSIONS Left Atrium (MM)2.32 (2.5-4.0cm)IVSd0.97 (0.7-1.1cm) Aortic Root3.21 (2.2-3.7cm)LVDd6.53 (4.0-5.6cm) Aortic Cusp Exc.2.21 (1.5-2.0cm)PWd0.85 (0.7-1.1cm) IVSs1.06 cmFS (%) 22 % LVDs5.09 (2.0-3.8cm)PWs1.12 cm Aortic Valve AoV Peak Gjaqobgc642.2cm/sAoV VTI19.4cmAO Peak GR.6mmHg LVOT Peak Jfjsetsp83.1cm/sLVOT VTI19.14cmAO Mean GR.3mmHg ANNA (VMAX)0.43yp6TRC (VTI)1.10cm2 Mitral Valve MV E Gqixgbva51.4cm/sMV DECEL [id number] A Jcsjcolf40.8cm/s MV FDJ54qdM/A ratio1.3MVA (PHT)2.95cm2 TDI Lateral E' Peak V17.21cm/sMedial E' Peak V11.00cm/sE/Lateral E'4.1 E/Medial E'6.5 LEFT VENTRICLE The left ventricle is normal size. There is normal left ventricular wall thickness. The left ventricular systolic function is normal. The estimated ejection fraction is 60-65% No regional wall motion abnormalities noted.. The left ventricular diastolic function is normal. No left ventricle thrombus noted on this study. There is no ventricular septal defect visualized. There is no left ventricular aneurysm. There is no mass noted in the left ventricle. RIGHT VENTRICLE The right ventricle is normal size. There is normal right ventricular wall thickness. The right ventricular systolic function is normal. ATRIA The left atrium size is normal. The right atrium size is normal. The interatrial septum is intact with no evidence for an atrial septal defect. AORTIC VALVE The aortic valve is normal in structure. No aortic regurgitation is present. There is no aortic valvular stenosis. There is no aortic valvular vegetation. MITRAL VALVE The mitral valve is normal in structure. There is no evidence of mitral valve prolapse. There is no mitral valve stenosis. There is no mitral valve regurgitation noted. TRICUSPID VALVE The tricuspid valve is normal in structure. There is trace tricuspid valve regurgitation noted. RVSP is calculated at < 20 mm Hg. There is no tricuspid valve prolapse or vegetation. There is no tricuspid valve stenosis. PULMONIC VALVE The pulmonary valve is normal in structure. There is no pulmonic valvular regurgitation. There is no pulmonic valvular stenosis. GREAT VESSELS The aortic root is normal in size. The ascending aorta is normal in size. The pulmonary artery is normal. The IVC is normal in size and collapses >50% with inspiration. PERICARDIAL EFFUSION There is no pericardial effusion. There is no pleural effusion. <Conclusion> The estimated ejection fraction is 60-65% The left ventricular diastolic function is normal. The left atrium size is normal. There is trace tricuspid valve regurgitation noted. RVSP is calculated at < 20 mm Hg. No evidence of endocarditis on this study. Correlate clinically.
[2018-09-22] MEDS: Pravastatin Sodium 20 MG TAB PO SCH (21:20)
[2018-09-23] MEDS: Lactated Ringer's 1,000 ML IV SCH (05:00)
[2018-09-23 07:27] LABS: HEMOGLOBIN 11.5 g/dL (12.0-18.0); MEAN CORPUSCULAR HEMOGLOBIN 30.2 pg (27.0-31.0); RBC 3.8 Mil/uL (4.40-5.90); RED CELL DISTRIBUTION WIDTH 13.1 % (11.5-14.5); WHITE BLOOD COUNT 7.5 K/uL (4.8-10.8)
[2018-09-23 07:44] LABS: BLOOD UREA NITROGEN 14 mg/dl (9-20); CALCIUM 9.3 mg/dL (8.4-10.2); GFR NON-AFRICAN AMERICAN > 60
[2018-09-23] MEDS: Insulin Regular 100 units/ml SC SCH ×4 (08:00→22:25)
[2018-09-23] MEDS: Enoxaparin 40 mg Syringe SC SCH (09:20)
[2018-09-23] MEDS: Silver Sulfadiazine 1% Cream (20 gm) TOP SCH (09:21)
--- NOTE | 2018-09-23 10:39 | CP.PCM.PN ---
<Kateryna Garsia - Last Filed: 09/23/18 12:14> Subjective - Date & Time of Evaluation Date of Evaluation: 09/23/18 Time of Evaluation: 10:37 - Subjective Subjective: Patient seen and evaluated at bedside. Resting comfortably. States he was able to sleep, however the bed is uncomfortable. Otherwise doing well, denies any fever, chills, nausea, or vomiting overnight. Objective - Vital Signs/Intake and Output Vital Signs (last 24 hours): Temp Pulse Resp BP Pulse Ox 98 F 70 18 120/67 98 09/23/18 08:25 09/23/18 08:25 09/23/18 08:25 09/23/18 08:25 09/23/18 08:25 - Medications Medications: Current Medications Acetaminophen (Tylenol 325mg Tab) 650 mg PO Q6 PRN PRN Reason: Pain, Mild (1-3) Last Admin: 09/22/18 21:35 Dose: 650 mg Dextrose (Dextrose 50% Inj) 0 ml IV STAT PRN; Protocol PRN Reason: Hypoglycemia Protocol Dextrose (Dextrose 50% Inj) 50 ml IVP ONCE PRN PRN Reason: Hypoglycemia Dextrose (Glutose 15) 0 gm PO ONCE PRN; Protocol PRN Reason: Hypoglycemia Protocol Duloxetine HCl (Cymbalta) 60 mg PO HS [facility] Last Admin: 09/22/18 21:20 Dose: 60 mg Glucagon (Glucagen Diagnostic Kit) 0 mg IM STAT PRN; Protocol PRN Reason: Hypoglycemia Protocol Glyburide (Micronase) 2.5 mg PO BID [facility] Last Admin: 09/23/18 09:20 Dose: 2.5 mg Lactated Ringer's (Lactated Ringer's) 1,000 mls @ 100 mls/hr IV .Q10H [facility] Last Admin: 09/23/18 05:00 Dose: Not Given Vancomycin HCl 1,500 mg/ (Sodium Chloride) 500 mls @ 250 mls/hr IVPB Q12@1000,2200 [facility]; Protocol Last Admin: 09/23/18 09:29 Dose: 250 mls/hr Insulin Human Regular (Humulin R) 0 units SC [facility]; Protocol Last Admin: 09/23/18 08:00 Dose: 2 units Ketorolac Tromethamine (Toradol) 30 mg IVP Q6 PRN PRN Reason: Pain, moderate (4-7) Lamotrigine (Lamictal) 25 mg PO Q12 [facility] Last Admin: 09/23/18 09:19 Dose: 25 mg Metformin HCl (Glucophage) 500 mg PO QPM [facility] Last Admin: 09/22/18 17:55 Dose: 500 mg Oxycodone/Acetaminophen (Percocet 5/325 Mg Tab) 1 tab PO Q4 PRN PRN Reason: Pain, severe (8-10) Stop: 09/23/18 14:05 Last Admin: 09/20/18 23:32 Dose: 1 tab Pravastatin Sodium (Pravachol) 20 mg PO [facility] Last Admin: 09/22/18 21:20 Dose: 20 mg Pyridoxine HCl (Vitamin B6 50 Mg Tab) 50 mg PO [facility] Last Admin: 09/22/18 21:20 Dose: 50 mg Silver Sulfadiazine (Silvadene 1% 20 Gm) 0 ea TOP DAILY [facility] Last Admin: 09/23/18 09:21 Dose: 1 applic - Labs Labs: 09/23/18 05:30 09/23/18 05:30 PT 15.1 Seconds (9.8-13.1) H 09/19/18 14:26 INR 1.3 09/19/18 14:26 APTT 26.2 Seconds (25.6-37.1) 09/19/18 14:26 - Constitutional Appears: No Acute Distress - Head Exam Head Exam: NORMAL INSPECTION - Neck Exam Neck Exam: Full ROM, Normal Inspection - Respiratory Exam Respiratory Exam: Clear to Ausculation Bilateral, NORMAL BREATHING PATTERN. absent: Rhonchi, Wheezes - Cardiovascular Exam Cardiovascular Exam: REGULAR RHYTHM, +S1, +S2 - GI/Abdominal Exam GI & Abdominal Exam: Soft, Normal Bowel Sounds. absent: Tenderness - Extremities Exam Extremities Exam: Normal Inspection. absent: Calf Tenderness Additional comments: LE dressing C/D/I No strikethrough - Neurological Exam Neurological Exam: Alert, Awake, CN II-XII Intact, Oriented x3 Assessment and Plan - Assessment and Plan (Free Text) Assessment: Assessment: 53 year old male patient, with PMHx of DM and HLD, admitted for sepsis. POD#2 L foot I&D. Plan: 1. Sepsis secondary to left foot ulceration with clinical OM - POD#4 Left foot I&D with removal of necrotic bone and soft tissue - Afebrile, leukocytosis resolved - Podiatry consult: Dr. Henley - ID consult Dr. Cervantes, reccs appreciated - PICC line: Awaiting negative blood cultures final results - Echo: No vegitations reported. Preseerved EF w/ mild TR. No evidence of endocarditis - C/w Vanco/Zosyn, await intra-op wound cultures final report; staph aureus - wound culture: staph aureus: Heavy growth - Blood culture (2/6); No growth for 3 days - Blood culture (2/5); staph aureus (x2) (Final) - CXR; no active pulmonary disease 2. Mild acute blood loss anemia and dilution anemia - Hgb 11.5 - Continue to monitor 3. DMII - Accuchecks - continue with medium dose sliding scale 4. HLD - C/w pravastatin 5. Diabetic neuropathy - C/w cymbalta and lamictal 6. DVT prophylaxis - SCDs - Lovenox 40mg SC QD 7. Code status -Full code <Uma Shah - Last Filed: 09/23/18 17:23> Objective - Vital Signs/Intake and Output Vital Signs (last 24 hours): Temp Pulse Resp BP Pulse Ox 98 F 77 20 106/61 99 09/23/18 16:38 09/23/18 16:38 09/23/18 16:38 09/23/18 16:38 09/23/18 16:38 - Medications Medications: Current Medications Acetaminophen (Tylenol 325mg Tab) 650 mg PO Q6 PRN PRN Reason: Pain, Mild (1-3) Last Admin: 09/22/18 21:35 Dose: 650 mg Dextrose (Dextrose 50% Inj) 0 ml IV STAT PRN; Protocol PRN Reason: Hypoglycemia Protocol Dextrose (Dextrose 50% Inj) 50 ml IVP ONCE PRN PRN Reason: Hypoglycemia Dextrose (Glutose 15) 0 gm PO ONCE PRN; Protocol PRN Reason: Hypoglycemia Protocol Duloxetine HCl (Cymbalta) 60 mg PO HS [facility] Last Admin: 09/22/18 21:20 Dose: 60 mg Glucagon (Glucagen Diagnostic Kit) 0 mg IM STAT PRN; Protocol PRN Reason: Hypoglycemia Protocol Glyburide (Micronase) 2.5 mg PO BID [facility] Last Admin: 09/23/18 09:20 Dose: 2.5 mg Lactated Ringer's (Lactated Ringer's) 1,000 mls @ 100 mls/hr IV .Q10H [facility] Last Admin: 09/23/18 05:00 Dose: Not Given Vancomycin HCl 1,500 mg/ (Sodium Chloride) 500 mls @ 250 mls/hr IVPB Q12@1000, 2200 [facility]; Protocol Last Admin: 09/23/18 09:29 Dose: 250 mls/hr Insulin Human Regular (Humulin R) 0 units SC ACHS [facility]; Protocol Last Admin: 09/23/18 16:36 Dose: 6 units Ketorolac Tromethamine (Toradol) 30 mg IVP Q6 PRN PRN Reason: Pain, moderate (4-7) Lamotrigine (Lamictal) 25 mg PO Q12 [facility] Last Admin: 09/23/18 09:19 Dose: 25 mg Metformin HCl (Glucophage) 500 mg PO QPM [facility] Last Admin: 09/22/18 17:55 Dose: 500 mg Pravastatin Sodium (Pravachol) 20 mg PO HS [facility] Last Admin: 09/22/18 21:20 Dose: 20 mg Pyridoxine HCl (Vitamin B6 50 Mg Tab) 50 mg PO HS [facility] Last Admin: 09/22/18 21:20 Dose: 50 mg Silver Sulfadiazine (Silvadene 1% 20 Gm) 0 ea TOP DAILY [facility] Last Admin: 09/23/18 09:21 Dose: 1 applic - Labs Labs: 09/23/18 05:30 09/23/18 05:30 PT 15.1 Seconds (9.8-13.1) H 09/19/18 14:26 INR 1.3 09/19/18 14:26 APTT 26.2 Seconds (25.6-37.1) 09/19/18 14:26 Attending/Attestation - Attestation I have personally seen and examined this patient.: Yes I have fully participated in the care of the patient.: Yes I have reviewed all pertinent clinical information, including history, physical exam and plan: Yes Notes (Text): Sepsis ( POA) sec to Left Foot Ulcer /Abscess and Osteomyelitis , s/p I&D of abscess and resection of necrotic bone MSSA Bacteremia -cont IV Vanco -Echo: No vegetation -ID recommends IV Vanco 1 gram q12 x 1 month and to monitor BMP and Vanco trough weekly ( discussed with Dr Cervantes: Vanco cannot be given as once daily dosing as pt is being treated for Bacteremia and not just Osteo) - pt initially verbalized fear that he might not be able to do Home IV Infusion after he learened that bet taker do not come daily. However since [facility] has been showing him how to do it In-house , he now feels more comfortable and prefers Home infusion rather than going to [facility]. - PICC line placement on Tuesday -IR consulted ( rpt Blood c/s now negative x 3 days )
--- NOTE | 2018-09-23 11:28 | CP.PCM.PN ---
Subjective - Date & Time of Evaluation Date of Evaluation: 09/23/18 Time of Evaluation: 11:28 - Subjective Subjective: Appears comfortable lying in bed. Left foot dressing changed this morning. Great toe visible, pink, warm, good capillary refill. Vital signs stable, remains afebrile, accuchecks noted. Plan for PICC insertion Tuesday AM and continued antibiotic therapy as outpatient at home. Objective - Vital Signs/Intake and Output Vital Signs (last 24 hours): Temp Pulse Resp BP Pulse Ox 98 F 70 18 120/67 98 09/23/18 08:25 09/23/18 08:25 09/23/18 08:25 09/23/18 08:25 09/23/18 08:25 - Medications Medications: Current Medications Acetaminophen (Tylenol 325mg Tab) 650 mg PO Q6 PRN PRN Reason: Pain, Mild (1-3) Last Admin: 09/22/18 21:35 Dose: 650 mg Dextrose (Dextrose 50% Inj) 0 ml IV STAT PRN; Protocol PRN Reason: Hypoglycemia Protocol Dextrose (Dextrose 50% Inj) 50 ml IVP ONCE PRN PRN Reason: Hypoglycemia Dextrose (Glutose 15) 0 gm PO ONCE PRN; Protocol PRN Reason: Hypoglycemia Protocol Duloxetine HCl (Cymbalta) 60 mg PO HS [facility] Last Admin: 09/22/18 21:20 Dose: 60 mg Glucagon (Glucagen Diagnostic Kit) 0 mg IM STAT PRN; Protocol PRN Reason: Hypoglycemia Protocol Glyburide (Micronase) 2.5 mg PO BID [facility] Last Admin: 09/23/18 09:20 Dose: 2.5 mg Lactated Ringer's (Lactated Ringer's) 1,000 mls @ 100 mls/hr IV .Q10H [facility] Last Admin: 09/23/18 05:00 Dose: Not Given Vancomycin HCl 1,500 mg/ (Sodium Chloride) 500 mls @ 250 mls/hr IVPB Q12@1000,2200 [facility]; Protocol Last Admin: 09/23/18 09:29 Dose: 250 mls/hr Insulin Human Regular (Humulin R) 0 units SC [facility]; Protocol Last Admin: 09/23/18 08:00 Dose: 2 units Ketorolac Tromethamine (Toradol) 30 mg IVP Q6 PRN PRN Reason: Pain, moderate (4-7) Lamotrigine (Lamictal) 25 mg PO Q12 [facility] Last Admin: 09/23/18 09:19 Dose: 25 mg Metformin HCl (Glucophage) 500 mg PO QPM [facility] Last Admin: 09/22/18 17:55 Dose: 500 mg Oxycodone/Acetaminophen (Percocet 5/325 Mg Tab) 1 tab PO Q4 PRN PRN Reason: Pain, severe (8-10) Stop: 09/23/18 14:05 Last Admin: 09/20/18 23:32 Dose: 1 tab Pravastatin Sodium (Pravachol) 20 mg PO HS [facility] Last Admin: 09/22/18 21:20 Dose: 20 mg Pyridoxine HCl (Vitamin B6 50 Mg Tab) 50 mg PO HS [facility] Last Admin: 09/22/18 21:20 Dose: 50 mg Silver Sulfadiazine (Silvadene 1% 20 Gm) 0 ea TOP DAILY [facility] Last Admin: 09/23/18 09:21 Dose: 1 applic - Labs Labs: 09/23/18 05:30 09/23/18 05:30 PT 15.1 Seconds (9.8-13.1) H 09/19/18 14:26 INR 1.3 09/19/18 14:26 APTT 26.2 Seconds (25.6-37.1) 09/19/18 14:26 Assessment and Plan (1) Cellulitis Status: Acute (2) Osteomyelitis of foot Status: Acute (3) Non-healing ulcer of left foot Status: Chronic (4) Diabetes Status: Chronic (5) MGUS (monoclonal gammopathy of unknown significance) Status: Chronic (6) Mixed hyperlipidemia due to type 2 diabetes mellitus Status: Chronic
--- NOTE | 2018-09-23 17:10 | CP.PCM.PN ---
Subjective - Date & Time of Evaluation Date of Evaluation: 09/23/18 Time of Evaluation: 08:05 - Subjective Subjective: Podiatry progress note for Dr. Henley, 53 y/o male patient seen amnd evaluated at bedside 4 day s/p I&D of Left foot abscess and resection of tibial and fibular sesamoid of the first metatarsal. Patient is AAOx3 and in NAD. Patient denies any decrease in appetite, chills, vomiting, fever, chest pain, shortness of breath, weakness or numbness in his lower extremities. Objective - Vital Signs/Intake and Output Vital Signs (last 24 hours): Temp Pulse Resp BP Pulse Ox 98 F 77 20 106/61 99 09/23/18 16:38 09/23/18 16:38 09/23/18 16:38 09/23/18 16:38 09/23/18 16:38 - Medications Medications: Current Medications Acetaminophen (Tylenol 325mg Tab) 650 mg PO Q6 PRN PRN Reason: Pain, Mild (1-3) Last Admin: 09/22/18 21:35 Dose: 650 mg Dextrose (Dextrose 50% Inj) 0 ml IV STAT PRN; Protocol PRN Reason: Hypoglycemia Protocol Dextrose (Dextrose 50% Inj) 50 ml IVP ONCE PRN PRN Reason: Hypoglycemia Dextrose (Glutose 15) 0 gm PO ONCE PRN; Protocol PRN Reason: Hypoglycemia Protocol Duloxetine HCl (Cymbalta) 60 mg PO HS [facility] Last Admin: 09/22/18 21:20 Dose: 60 mg Glucagon (Glucagen Diagnostic Kit) 0 mg IM STAT PRN; Protocol PRN Reason: Hypoglycemia Protocol Glyburide (Micronase) 2.5 mg PO BID [facility] Last Admin: 09/23/18 09:20 Dose: 2.5 mg Lactated Ringer's (Lactated Ringer's) 1,000 mls @ 100 mls/hr IV .Q10H [facility] Last Admin: 09/23/18 05:00 Dose: Not Given Vancomycin HCl 1,500 mg/ (Sodium Chloride) 500 mls @ 250 mls/hr IVPB Q12@1000,2200 [facility]; Protocol Last Admin: 09/23/18 09:29 Dose: 250 mls/hr Insulin Human Regular (Humulin R) 0 units SC ACHS [facility]; Protocol Last Admin: 09/23/18 16:36 Dose: 6 units Ketorolac Tromethamine (Toradol) 30 mg IVP Q6 PRN PRN Reason: Pain, moderate (4-7) Lamotrigine (Lamictal) 25 mg PO Q12 [facility] Last Admin: 09/23/18 09:19 Dose: 25 mg Metformin HCl (Glucophage) 500 mg PO QPM [facility] Last Admin: 09/22/18 17:55 Dose: 500 mg Pravastatin Sodium (Pravachol) 20 mg PO HS [facility] Last Admin: 09/22/18 21:20 Dose: 20 mg Pyridoxine HCl (Vitamin B6 50 Mg Tab) 50 mg PO HS [facility] Last Admin: 09/22/18 21:20 Dose: 50 mg Silver Sulfadiazine (Silvadene 1% 20 Gm) 0 ea TOP DAILY [facility] Last Admin: 09/23/18 09:21 Dose: 1 applic - Labs Labs: 09/23/18 05:30 09/23/18 05:30 PT 15.1 Seconds (9.8-13.1) H 09/19/18 14:26 INR 1.3 09/19/18 14:26 APTT 26.2 Seconds (25.6-37.1) 09/19/18 14:26 - Constitutional Appears: Well, Non-toxic, No Acute Distress - Head Exam Head Exam: ATRAUMATIC, NORMOCEPHALIC - Extremities Exam Additional comments: Left lower extremity exam: Vascular: DP/PT 2/4, Cap refill <3 secs x 10, Temp gradient warm to cool, edema and erythema noted on the dorsal aspect of the foot and anterior aspect of leg to the knee joint (resolving proximally) Neuro: protective sensation diminished 0/4 via [place]. Derm: Surgical Incision noted connecting the Ulcer noted at the base of 1st MPJ measuring approximately 2cm x 2cm with fibrotic base. Ulcer is probe to bone, minimal sero-sanguineous drainage. Retention sutures noted at the surgery site. Minimal erythema and edema noted on the dorsal aspect of the foot extending distally to the knee joint( resolving proximally) MSK: no pain with palpation of the ulcer, minimal palpation with palpation of the leg diffusely - Neurological Exam Neurological Exam: Alert, Awake, Oriented x3 - Psychiatric Exam Psychiatric exam: Normal Affect, Normal Mood Assessment and Plan - Assessment and Plan (Free Text) Assessment: 53 yo male seen and evaluated 4 day s/p Left foot I&D and resection of tibial and fibular sesamoid of the first metatarsal Plan: Patient seen and evaluated Chart, labs and vitals reviewed; WBC 7.5, afebrile. Left foot x-rays reviewed (09/19): erosions noted to the distal aspect of the first metatarsal and proximal aspect of first proximal phalanx, no subcutaneous emphysema noted Site cleansed with saline and dressed with SSD, DSD and BIANKA Wound cultures: staph aureus Blood cultures: gram positive cocci in clusters Intra-op Bone pathology: Acute OM of the tibial, fibular sesamoids and the 1st met head. PT on board. ID consult ordered; recs appreciated; 4 weeks of IV antibiotic. PICC line orderd Podiatry will continue to follow up the patient while in house.
[2018-09-23] MEDS: Pravastatin Sodium 20 MG TAB PO SCH (21:04)
[2018-09-24 06:52] LABS: HEMOGLOBIN 12.1 g/dL (12.0-18.0); MEAN CELL VOLUME 88.8 fl (80.0-94.0); MEAN CORPUSCULAR HEMOGLOBIN 30.1 pg (27.0-31.0); MEAN CORPUSCULAR HGB CONC 33.9 g/dL (33.0-37.0); RBC 4.01 Mil/uL (4.40-5.90); RED CELL DISTRIBUTION WIDTH 13.2 % (11.5-14.5); WHITE BLOOD COUNT 8.4 K/uL (4.8-10.8)
[2018-09-24 07:04] LABS: BLOOD UREA NITROGEN 13 mg/dl (9-20); CALCIUM 9.5 mg/dL (8.4-10.2); GFR NON-AFRICAN AMERICAN > 60
[2018-09-24] MEDS: Insulin Regular 100 units/ml SC SCH ×4 (08:00→22:09)
[2018-09-24] MEDS: Silver Sulfadiazine 1% Cream (20 gm) TOP SCH (09:17)
--- NOTE | 2018-09-24 10:20 | CP.PCM.PN ---
Subjective - Date & Time of Evaluation Date of Evaluation: 09/24/18 Time of Evaluation: 10:15 - Subjective Subjective: 53 YO M doing well. Seen after eating his breakfast without any problems. - IS looking forward to getting his PICC line tomorrow and going home, has a hard time sleeping in the hospital. Denies any fever, chills, nausea or vomiting. Objective - Vital Signs/Intake and Output Vital Signs (last 24 hours): Temp Pulse Resp BP Pulse Ox 98 F 72 18 135/72 97 09/24/18 08:36 09/24/18 08:36 09/24/18 08:36 09/24/18 08:36 09/24/18 08:36 - Medications Medications: Current Medications Acetaminophen (Tylenol 325mg Tab) 650 mg PO Q6 PRN PRN Reason: Pain, Mild (1-3) Last Admin: 09/22/18 21:35 Dose: 650 mg Dextrose (Dextrose 50% Inj) 0 ml IV STAT PRN; Protocol PRN Reason: Hypoglycemia Protocol Dextrose (Dextrose 50% Inj) 50 ml IVP ONCE PRN PRN Reason: Hypoglycemia Dextrose (Glutose 15) 0 gm PO ONCE PRN; Protocol PRN Reason: Hypoglycemia Protocol Duloxetine HCl (Cymbalta) 60 mg PO [facility] Last Admin: 09/23/18 21:04 Dose: 60 mg Glucagon (Glucagen Diagnostic Kit) 0 mg IM STAT PRN; Protocol PRN Reason: Hypoglycemia Protocol Glyburide (Micronase) 2.5 mg PO BID [facility] Last Admin: 09/24/18 09:16 Dose: 2.5 mg Vancomycin HCl 1,500 mg/ (Sodium Chloride) 500 mls @ 250 mls/hr IVPB Q12@1000,2200 [facility]; Protocol Last Admin: 09/24/18 09:21 Dose: 250 mls/hr Insulin Human Regular (Humulin R) 0 units SC [facility]; Protocol Last Admin: 09/24/18 08:00 Dose: 3 units Ketorolac Tromethamine (Toradol) 30 mg IVP Q6 PRN PRN Reason: Pain, moderate (4-7) Lamotrigine (Lamictal) 25 mg PO Q12 [facility] Last Admin: 09/24/18 09:16 Dose: 25 mg Metformin HCl (Glucophage) 850 mg PO BID [facility] Pravastatin Sodium (Pravachol) 20 mg PO [facility] Last Admin: 09/23/18 21:04 Dose: 20 mg Pyridoxine HCl (Vitamin B6 50 Mg Tab) 50 mg PO HS [facility] Last Admin: 09/23/18 21:04 Dose: 50 mg Silver Sulfadiazine (Silvadene 1% 20 Gm) 0 ea TOP DAILY [facility] Last Admin: 09/24/18 09:17 Dose: 1 applic - Labs Labs: 09/24/18 05:30 09/24/18 05:30 PT 15.1 Seconds (9.8-13.1) H 09/19/18 14:26 INR 1.3 09/19/18 14:26 APTT 26.2 Seconds (25.6-37.1) 09/19/18 14:26 - Constitutional Appears: No Acute Distress - Head Exam Head Exam: NORMAL INSPECTION - Eye Exam Eye Exam: Normal appearance - Respiratory Exam Respiratory Exam: Clear to Ausculation Bilateral, NORMAL BREATHING PATTERN. absent: Rhonchi, Wheezes - Cardiovascular Exam Cardiovascular Exam: REGULAR RHYTHM, +S1, +S2 - GI/Abdominal Exam GI & Abdominal Exam: Soft, Normal Bowel Sounds. absent: Tenderness - Extremities Exam Additional comments: LE dressing C/D/I No strikethrough - Decreased sensation over toes (chronic) Cap refill <3 secs - Neurological Exam Neurological Exam: Alert, Awake, CN II-XII Intact. absent: Oriented x3 Assessment and Plan - Assessment and Plan (Free Text) Assessment: 53 year old male patient, with PMHx of DM and HLD, admitted for sepsis. POD#5 L foot I&D. Plan: 1. Sepsis secondary to left foot ulceration with clinical OM - POD#5 Left foot I&D with removal of necrotic bone and soft tissue - Afebrile, leukocytosis resolved - Podiatry consult: Dr. Henley - ID consult Dr. Cervantes, reccs appreciated - PICC line: Awaiting negative blood cultures final results - Echo: No vegetations reported. Preseerved EF w/ mild TR. No evidence of endocarditis - C/w Vanco (Day 4) . Final report; staph aureus - wound culture: staph aureus: Heavy growth - Blood culture (2/6); No growth for 4 days - Blood culture (2/5); staph aureus (x2) (Final) - CXR; no active pulmonary disease - PICC line tomorrow and IV antibiotics for 4-6 weeks 2. Mild acute blood loss anemia and dilution anemia ( Resolved) - Hgb 12.1 3. DMII - Accuchecks - Changed patients Metformin and Glyburide to BID for better glucose controll. - continue with medium dose sliding scale 4. HLD - C/w pravastatin 5. Diabetic neuropathy - C/w cymbalta and lamictal 6. DVT prophylaxis - SCDs - Lovenox 40mg SC QD 7. Code status -Full code
--- NOTE | 2018-09-24 12:54 | CP.PCM.PN ---
Subjective - Date & Time of Evaluation Date of Evaluation: 09/24/18 Time of Evaluation: 12:51 - Subjective Subjective: Podiatry progress note for Dr. Henley, 53 y/o male patient seen amnd evaluated at bedside 5 day s/p I&D of Left foot abscess and resection of tibial and fibular sesamoid of the first metatarsal. Patient denies any pain at the ulcer site. Patient is AAOx3 and in NAD. Patient denies any decrease in appetite, chills, vomiting, fever, chest pain, shortness of breath, weakness or numbness in his lower extremities. Objective - Vital Signs/Intake and Output Vital Signs (last 24 hours): Temp Pulse Resp BP Pulse Ox 98 F 72 18 135/72 97 09/24/18 08:36 09/24/18 08:36 09/24/18 08:36 09/24/18 08:36 09/24/18 08:36 - Medications Medications: Current Medications Acetaminophen (Tylenol 325mg Tab) 650 mg PO Q6 PRN PRN Reason: Pain, Mild (1-3) Last Admin: 09/22/18 21:35 Dose: 650 mg Dextrose (Dextrose 50% Inj) 0 ml IV STAT PRN; Protocol PRN Reason: Hypoglycemia Protocol Dextrose (Dextrose 50% Inj) 50 ml IVP ONCE PRN PRN Reason: Hypoglycemia Dextrose (Glutose 15) 0 gm PO ONCE PRN; Protocol PRN Reason: Hypoglycemia Protocol Duloxetine HCl (Cymbalta) 60 mg PO HS [facility] Last Admin: 09/23/18 21:04 Dose: 60 mg Glucagon (Glucagen Diagnostic Kit) 0 mg IM STAT PRN; Protocol PRN Reason: Hypoglycemia Protocol Glyburide (Micronase) 2.5 mg PO BID [facility] Last Admin: 09/24/18 09:16 Dose: 2.5 mg Vancomycin HCl 1,500 mg/ (Sodium Chloride) 500 mls @ 250 mls/hr IVPB Q1 2@1000,2200 [facility]; Protocol Last Admin: 09/24/18 09:21 Dose: 250 mls/hr Insulin Human Regular (Humulin R) 0 units SC [facility]; Protocol Last Admin: 09/24/18 08:00 Dose: 3 units Ketorolac Tromethamine (Toradol) 30 mg IVP Q6 PRN PRN Reason: Pain, moderate (4-7) Lamotrigine (Lamictal) 25 mg PO Q12 [facility] Last Admin: 09/24/18 09:16 Dose: 25 mg Metformin HCl (Glucophage) 500 mg PO BID [facility] Pravastatin Sodium (Pravachol) 20 mg PO HS [facility] Last Admin: 09/23/18 21:04 Dose: 20 mg Pyridoxine HCl (Vitamin B6 50 Mg Tab) 50 mg PO HS [facility] Last Admin: 09/23/18 21:04 Dose: 50 mg Silver Sulfadiazine (Silvadene 1% 20 Gm) 0 ea TOP DAILY [facility] Last Admin: 09/24/18 09:17 Dose: 1 applic - Labs Labs: 09/24/18 05:30 09/24/18 05:30 PT 15.1 Seconds (9.8-13.1) H 09/19/18 14:26 INR 1.3 09/19/18 14:26 APTT 26.2 Seconds (25.6-37.1) 09/19/18 14:26 - Constitutional Appears: Well, Non-toxic, No Acute Distress - Head Exam Head Exam: ATRAUMATIC, NORMOCEPHALIC - Extremities Exam Additional comments: Left lower extremity exam: Vascular: DP/PT 2/4, Cap refill <3 secs x 10, Temp gradient warm to cool, edema and erythema noted on the dorsal aspect of the foot and anterior aspect of leg to the knee joint (resolving proximally) Neuro: protective sensation diminished 0/4 via [place]. Derm: Surgical Incision noted connecting the Ulcer noted at the base of 1st MPJ measuring approximately 2cm x 2cm with fibrotic base. Ulcer is probe to bone, minimal sero-sanguineous drainage. Retention sutures noted at the surgery site. Maceration noted in the ulcer edges. MSK: no pain with palpation of the ulcer, minimal palpation with palpation of the leg diffusely - Neurological Exam Neurological Exam: Alert, Awake, Oriented x3 - Psychiatric Exam Psychiatric exam: Normal Affect, Normal Mood Assessment and Plan - Assessment and Plan (Free Text) Assessment: 53 yo male seen and evaluated 4 day s/p Left foot I&D and resection of tibial and fibular sesamoid of the first metatarsal Plan: Patient seen and evaluated Chart, labs and vitals reviewed; WBC 8.4, afebrile. Left foot x-rays reviewed (09/19): erosions noted to the distal aspect of the first metatarsal and proximal aspect of first proximal phalanx, no subcutaneous emphysema noted Site cleansed with saline and dressed with SSD, DSD and BIANKA Wound cultures: staph aureus Blood cultures: gram positive cocci in clusters Intra-op Bone pathology: Acute OM of the tibial, fibular sesamoids and the 1st met head. PT on board, Reccs appreciated. ID consult ordered; recs appreciated; 4 weeks of IV antibiotic. PICC line orderd Podiatry will continue to follow up the patient while in house.
[2018-09-24] MEDS: Pravastatin Sodium 20 MG TAB PO SCH (21:55)
--- NOTE | 2018-09-25 05:42 | CP.PCM.PN ---
Subjective - Date & Time of Evaluation Date of Evaluation: 09/25/18 Time of Evaluation: 05:39 - Subjective Subjective: Podiatry progress note for Dr. Henley, 53 y/o male patient seen and evaluated at bedside 6 day s/p I&D of Left foot abscess and resection of tibial and fibular sesamoid of the first metatarsal. Patient denies any pain at the ulcer site. Patient is AAOx3 and in NAD. Patient denies any decrease in appetite, chills, vomiting, fever, chest pain, shortness of breath, weakness or numbness in his lower extremities. Objective - Vital Signs/Intake and Output Vital Signs (last 24 hours): Temp Pulse Resp BP Pulse Ox 98.3 F 76 19 118/60 99 09/25/18 00:36 09/25/18 00:36 09/25/18 00:36 09/25/18 00:36 09/25/18 00:36 - Medications Medications: Current Medications Acetaminophen (Tylenol 325mg Tab) 650 mg PO Q6 PRN PRN Reason: Pain, Mild (1-3) Last Admin: 09/22/18 21:35 Dose: 650 mg Dextrose (Dextrose 50% Inj) 0 ml IV STAT PRN; Protocol PRN Reason: Hypoglycemia Protocol Dextrose (Dextrose 50% Inj) 50 ml IVP ONCE PRN PRN Reason: Hypoglycemia Dextrose (Glutose 15) 0 gm PO ONCE PRN; Protocol PRN Reason: Hypoglycemia Protocol Duloxetine HCl (Cymbalta) 60 mg PO HS [facility] Last Admin: 09/24/18 21:55 Dose: 60 mg Glucagon (Glucagen Diagnostic Kit) 0 mg IM STAT PRN; Protocol PRN Reason: Hypoglycemia Protocol Glyburide (Micronase) 2.5 mg PO BID [facility] Last Admin: 09/24/18 17:25 Dose: 2.5 mg Vancomycin HCl 1,500 mg/ (Sodium Chloride) 500 mls @ 250 mls/hr IVPB Q12@1000,2200 [facility]; Protocol Last Admin: 09/24/18 22:07 Dose: 250 mls/hr Insulin Human Regular (Humulin R) 0 units SC [facility]; Protocol Last Admin: 09/24/18 22:09 Dose: Not Given Ketorolac Tromethamine (Toradol) 30 mg IVP Q6 PRN PRN Reason: Pain, moderate (4-7) Lamotrigine (Lamictal) 25 mg PO Q12 [facility] Last Admin: 09/24/18 20:50 Dose: 25 mg Metformin HCl (Glucophage) 500 mg PO BID [facility] Last Admin: 09/24/18 17:21 Dose: 500 mg Pravastatin Sodium (Pravachol) 20 mg PO HS [facility] Last Admin: 09/24/18 21:55 Dose: 20 mg Pyridoxine HCl (Vitamin B6 50 Mg Tab) 50 mg PO [facility] Last Admin: 09/24/18 21:54 Dose: 50 mg Silver Sulfadiazine (Silvadene 1% 20 Gm) 0 ea TOP DAILY [facility] Last Admin: 09/24/18 09:17 Dose: 1 applic - Labs Labs: 09/24/18 05:30 09/24/18 05:30 PT 15.1 Seconds (9.8-13.1) H 09/19/18 14:26 INR 1.3 09/19/18 14:26 APTT 26.2 Seconds (25.6-37.1) 09/19/18 14:26 - Constitutional Appears: Well, Non-toxic - Head Exam Head Exam: ATRAUMATIC - Extremities Exam Additional comments: Left lower extremity exam: Vascular: DP/PT 2/4, Cap refill <3 secs x 10, Temp gradient warm to cool, edema and erythema noted on the dorsal aspect of the foot and anterior aspect of leg to the knee joint (resolving proximally) Neuro: protective sensation diminished 0/4 via [place]. Derm: Surgical Incision noted connecting the Ulcer noted at the base of 1st MPJ measuring approximately 2cm x 2cm with fibrotic base. Ulcer is probe to bone, minimal sero-sanguineous drainage. Retention sutures noted at the surgery site. Maceration noted in the ulcer edges. MSK: no pain with palpation of the ulcer, minimal palpation with palpation of the leg diffusely Assessment and Plan - Assessment and Plan (Free Text) Assessment: 53 yo male seen and evaluated 4 day s/p Left foot I&D and resection of tibial and fibular sesamoid of the first metatarsal Plan: Patient seen and evaluated Chart, labs and vitals reviewed; WBC 8.4, afebrile. Left foot x-rays reviewed (09/19): erosions noted to the distal aspect of the first metatarsal and proximal aspect of first proximal phalanx, no subcutaneous emphysema noted Site cleansed with saline and dressed with SSD, DSD and BIANKA Wound cultures: staph aureus Blood cultures: gram positive cocci in clusters Intra-op Bone pathology: Acute OM of the tibial, fibular sesamoids and the 1st met head. PT on board, Reccs appreciated. ID consult ordered; recs appreciated; 4 weeks of IV antibiotic. PICC line ordered Surgical shoe ordered for the patient; to be worn at all times Podiatry will continue to follow up the patient while in house.
[2018-09-25 06:25] LABS: HEMOGLOBIN 12.7 g/dL (12.0-18.0); MEAN CELL VOLUME 88.8 fl (80.0-94.0); MEAN CORPUSCULAR HEMOGLOBIN 30.2 pg (27.0-31.0); RBC 4.2 Mil/uL (4.40-5.90); RED CELL DISTRIBUTION WIDTH 13.2 % (11.5-14.5); WHITE BLOOD COUNT 9.7 K/uL (4.8-10.8)
[2018-09-25 06:29] LABS: INR 1.2
[2018-09-25 06:36] LABS: BLOOD UREA NITROGEN 17 mg/dl (9-20); CALCIUM 9.6 mg/dL (8.4-10.2); GFR NON-AFRICAN AMERICAN > 60
[2018-09-25] MEDS ORDERED: Lidocaine 2% MPF (5 ml) Inj ONE (08:16)
--- NOTE | 2018-09-25 08:35 | PCM.SURG1 ---
Surgeon's Initial Post Op Note - Surgeon's Notes Surgeon: Darrin Aguirre MD Valve Lapper: NONE Type of Anesthesia: Local Pre-Operative Diagnosis: INfection Operative Findings: US showed a patent right basilic vein Post-Operative Diagnosis: Infection Operation Performed: single lumen picc right arm, 37 cm. Tip in SVC. Specimen/Specimens Removed: NONE Estimated Blood Loss: EBL {In ML}: 2 Blood Products Given: N/A Drains Used: No Drains Post-Op Condition: Fair Date of Surgery/Procedure: 09/25/18 Time of Surgery/Procedure: 08:30
--- NOTE | 2018-09-25 08:36 | PCM.SURG1 ---
Surgeon's Initial Post Op Note - Surgeon's Notes Surgeon: Darrin Aguirre MD [employer] Repairer: NONE Type of Anesthesia: Local Pre-Operative Diagnosis: Infection Operative Findings: US showed a patent right IJV Post-Operative Diagnosis: INfection Operation Performed: S[place]gle lumen picc placement right arm Specimen/Specimens Removed: NONE Estimated Blood Loss: EBL {In ML}: 2 Blood Products Given: N/A Drains Used: No Drains Post-Op Condition: Fair Date of Surgery/Procedure: 09/25/18 Time of Surgery/Procedure: 08:30
[2018-09-25 08:40] VITALS: BP 147/64; PULSE 73; RESP 20; TEMP 97.7; O2SAT 100
[2018-09-25] MEDS: Insulin Regular 100 units/ml SC SCH (08:56)
--- NOTE | 2018-09-25 09:16 | CP.PCM.DIS ---
Provider - Provider Date of Admission: 09/19/18 14:53 Attending physician: Aravind Joel MD Consults: 09/19/18 14:00 Podiatry Consult Stat Comment: Consulting Provider: Jonathan Henley Consulting Physician: Jonathan Henley Reason for Consult: infected foot ulcer, OM of left foot 09/19/18 16:23 Infectious Disease Consult Stat Comment: Consulting Provider: Dalton Cervantes Consulting Physician: Dalton Cervantes Reason for Consult: Left ulceration with possible abscess 09/20/18 16:30 Physician Consult Routine Comment: Consulting Provider: Matthew Andrews Consulting Physician: Matthew Andrews Reason for Consult: PMD Time Spent in preparation of Discharge (in minutes): 30 Hospital Course - Lab Results Lab Results: Micro Results 09/20/18 Unknown Blood Blood Culture - Final NO GROWTH AFTER 5 DAYS 09/20/18 Unknown Blood Gram Stain - Final TEST NOT PERFORMED 09/20/18 Unknown Blood Blood Culture - Final NO GROWTH AFTER 5 DAYS 09/20/18 Unknown Blood Gram Stain - Final TEST NOT PERFORMED 09/19/18 08:51 Other: Please Indicate Gram Stain - Final 09/19/18 08:51 Other: Please Indicate Wound Culture - Final Staphylococcus Aureus 09/19/18 15:00 Blood-Venous Blood Culture - Final Staphylococcus Aureus 09/19/18 15:00 Blood-Venous Gram Stain - Final 09/19/18 08:51 Other: Please Indicate Gram Stain - Final 09/19/18 08:51 Other: Please Indicate Wound Culture - Final Staphylococcus Aureus 09/19/18 14:26 Blood-Venous Blood Culture - Final Staphylococcus Aureus 09/19/18 14:26 Blood-Venous Gram Stain - Final 09/19/18 17:00 Foot - Left Gram Stain - Final 09/19/18 17:00 Foot - Left Wound Culture - Final Staphylococcus Aureus Most Recent Lab Values WBC 9.7 K/uL (4.8-10.8) 09/25/18 05:35 RBC 4.20 Mil/uL (4.40-5.90) L 09/25/18 05:35 Hgb 12.7 g/dL (12.0-18.0) 09/25/18 05:35 Hct 37.3 % (35.0-51.0) 09/25/18 05:35 MCV 88.8 fl (80.0-94.0) 09/25/18 05:35 MCH 30.2 pg (27.0-31.0) 09/25/18 05:35 MCHC 34.0 g/dL (33.0-37.0) 09/25/18 05:35 RDW 13.2 % (11.5-14.5) 09/25/18 05:35 Plt Count 264 K/uL (130-400) 09/25/18 05:35 MPV 9.8 fl (7.2-11.7) 09/19/18 14:26 Neut % (Auto) 81.8 % (50.0-75.0) H 09/19/18 14:26 Lymph % (Auto) 7.0 % (20.0-40.0) L 09/19/18 14:26 [place] % (Auto) 10.8 % (0.0-10.0) H 09/19/18 14:26 Eos % (Auto) 0.2 % (0.0-4.0) 09/19/18 14:26 Baso % (Auto) 0.2 % (0.0-2.0) 09/19/18 14:26 Neut # (Auto) 11.3 K/uL (1.8-7.0) H 09/19/18 14:26 Lymph # (Auto) 1.0 K/uL (1.0-4.3) 09/19/18 14:26 [place] # (Auto) 1.5 K/uL (0.0-0.8) H 09/19/18 14:26 Eos # (Auto) 0.0 K/uL (0.0-0.7) 09/19/18 14:26 Baso # (Auto) 0.0 K/uL (0.0-0.2) 09/19/18 14:26 Neutrophils % (Manual) 75 % (42-75) 09/19/18 14:26 Band Neutrophils % 2 % (0-2) 09/19/18 14:26 Lymphocytes % (Manual) 8 % (20-50) L 09/19/18 14:26 Reactive Lymphs % 2 % (0-0) H 09/19/18 14:26 Monocytes % (Manual) 12 % (0-10) H 09/19/18 14:26 Basophils % (Manual) 1 % (0-2) 09/19/18 14:26 Platelet Estimate Normal (NORMAL) 09/19/18 14:26 RBC Morphology Normal (NORMAL) 09/19/18 14:26 ESR 110 mm/hr (0-20) H 09/21/18 05:45 PT 14.0 Seconds (9.8-13.1) H 09/25/18 05:35 INR 1.2 09/25/18 05:35 APTT 26.2 Seconds (25.6-37.1) 09/19/18 14:26 pO2 20 mm/Hg (30-55) L 09/19/18 14:37 VBG pH 7.40 (7.32-7.43) 09/19/18 14:37 VBG pCO2 40 mmHg (40-60) 09/19/18 14:37 VBG HCO3 23.2 mmol/L 09/19/18 14:37 VBG Total CO2 26.0 mmol/L (22-28) 09/19/18 14:37 VBG O2 Sat (Calc) 45.0 % (40-65) 09/19/18 14:37 VBG Base Excess 0.0 mmol/L (0.0-2.0) 09/19/18 14:37 VBG Potassium 5.0 mmol/L (3.6-5.2) 09/19/18 14:37 Sodium 129.0 mmol/L (132-148) L 09/19/18 14:37 Chloride 101.0 mmol/L (98-107) 09/19/18 14:37 Glucose 259 mg/dL (75-110) H 09/19/18 14:37 Lactate 3.8 mmol/L (0.7-2.1) H 09/19/18 14:37 FiO2 21.0 % 09/19/18 14:37 Sodium 138 mmol/l (132-148) 09/25/18 05:35 Potassium 4.8 MMOL/L (3.6-5.0) 09/25/18 05:35 Chloride 97 mmol/L (98-107) L 09/25/18 05:35 Carbon Dioxide 30 mmol/L (22-30) 09/25/18 05:35 Anion Gap 16 (10-20) 09/25/18 05:35 BUN 17 mg/dl (9-20) 09/25/18 05:35 Creatinine 0.6 mg/dl (0.8-1.5) L 09/25/18 05:35 Est GFR ( Amer) > 60 09/25/18 05:35 Est GFR (Non-Af Amer) > 60 09/25/18 05:35 POC Glucose (mg/dL) 192 mg/dL (65-110) H 09/25/18 06:06 Random Glucose 206 mg/dL (75-110) H 09/25/18 05:35 Hemoglobin A1c 8.3 % (4.2-6.5) H 09/23/18 05:30 Lactic Acid 0.8 mmol/L (0.7-2.1) 09/20/18 03:15 Calcium 9.6 mg/dL (8.4-10.2) 09/25/18 05:35 Phosphorus 3.1 mg/dl (2.5-4.5) 09/21/18 05:45 Magnesium 2.0 MG/DL (1.6-2.3) 09/21/18 05:45 Total Bilirubin 0.5 mg/dl (0.2-1.3) 09/21/18 05:45 AST 26 U/L (17-59) 09/21/18 05:45 ALT 32 U/L (21-72) 09/21/18 05:45 Alkaline Phosphatase 69 U/L (38-126) 09/21/18 05:45 Total Protein 6.6 G/DL (6.3-8.2) 09/21/18 05:45 Albumin 3.1 g/dL (3.5-5.0) L 09/21/18 05:45 Globulin 3.5 gm/dL (2.2-3.9) 09/21/18 05:45 Albumin/Globulin Ratio 0.9 (1.0-2.1) L 09/21/18 05:45 Venous Blood Potassium 5.0 mmol/L (3.6-5.2) 09/19/18 14:37 Vancomycin Trough 12.1 ug/mL (5.0-10.0) H 09/23/18 05:30 Blood Type AB POSITIVE 09/19/18 14:26 Blood Type Confirm AB POSITIVE 09/19/18 15:04 Antibody Screen Negative 09/19/18 14:26 BBK History Checked No verified bt 09/19/18 14:26 - Hospital Course Hospital Course: 53 year old male patient, with PMHx of DM and HLD, admitted for sepsis secondary to left foot ulceration. During his hospital course, patient was started on IV antibiotics and underwent left foot incision and drainage of abscess with resection of tibial and fibular sesamoid with Dr. Henley. On day of discharge cellulitis resolved, blood cultures negative, and PICC line placed. Patient stable for discharge home for 4 weeks of IV antibiotics. Patient to weightbear as tolerated to left heel with the use of crutches and surgical shoe. Patient to follow up as out patient with Dr. Henley for continued lower extremity care. - Date & Time of H&P Date of H&P: 09/25/18 Time of H&P: 09:27 Discharge Exam - Head Exam Head Exam: ATRAUMATIC, NORMOCEPHALIC - Eye Exam Eye Exam: Normal appearance Pupil Exam: NORMAL ACCOMODATION - Respiratory Exam Respiratory Exam: NORMAL BREATHING PATTERN, UNREMARKABLE - Cardiovascular Exam Cardiovascular Exam: REGULAR RHYTHM - GI/Abdominal Exam GI & Abdominal Exam: Normal Bowel Sounds, Unremarkable - Extremities Exam Additional comments: L foot dressing c/d/i - Neurological Exam Neurological exam: Alert, Oriented x3 - Psychiatric Exam Psychiatric exam: Normal Affect, Normal Mood - Skin Skin Exam: Warm Discharge Plan - Follow Up Plan Condition: FAIR Disposition: HOME/ ROUTINE Instructions: Peripherally-Inserted Central Catheter (DC), Wound Incision and Drainage (DC), Cellulitis (DC), Sepsis (DC) Additional Instructions: follow up with primary MD and dr henley 1 week shila infusions for home antibiotic [phone] Referrals: Dalton Cervantes MD [Staff Provider] - Jonathan Henley MD [Staff Provider] - Matthew Andrews MD [Family Provider] -
--- NOTE | 2018-09-25 11:12 | CP.PCM.PN ---
Subjective - Date & Time of Evaluation Date of Evaluation: 09/25/18 Time of Evaluation: 11:11 - Subjective Subjective: PICC line has been inserted earlier today. Arrangements are underway for discharge to home and continued IV antibiotic therapy as an outpatient. Glycemic control is less than satisfactory and Glucovance has been increased to twice daily. We will follow-up as an outpatient. Objective - Vital Signs/Intake and Output Vital Signs (last 24 hours): Temp Pulse Resp BP Pulse Ox 97.7 F 73 20 147/64 100 09/25/18 08:40 09/25/18 08:40 09/25/18 08:40 09/25/18 08:40 09/25/18 08:40 - Medications Medications: Current Medications Acetaminophen (Tylenol 325mg Tab) 650 mg PO Q6 PRN PRN Reason: Pain, Mild (1-3) Last Admin: 09/22/18 21:35 Dose: 650 mg Dextrose (Dextrose 50% Inj) 0 ml IV STAT PRN; Protocol PRN Reason: Hypoglycemia Protocol Dextrose (Dextrose 50% Inj) 50 ml IVP ONCE PRN PRN Reason: Hypoglycemia Dextrose (Glutose 15) 0 gm PO ONCE PRN; Protocol PRN Reason: Hypoglycemia Protocol Duloxetine HCl (Cymbalta) 60 mg PO HS [facility] Last Admin: 09/24/18 21:55 Dose: 60 mg Glucagon (Glucagen Diagnostic Kit) 0 mg IM STAT PRN; Protocol PRN Reason: Hypoglycemia Protocol Glyburide (Micronase) 2.5 mg PO BID [facility] Last Admin: 09/25/18 08:56 Dose: 2.5 mg Vancomycin HCl 1,500 mg/ (Sodium Chloride) 500 mls @ 250 mls/hr IVPB Q12@1000,2200 [facility]; Protocol Last Admin: 09/25/18 09:10 Dose: 250 mls/hr Insulin Human Regular (Humulin R) 0 units SC ACHS [facility]; Protocol Last Admin: 09/25/18 08:56 Dose: 2 units Ketorolac Tromethamine (Toradol) 30 mg IVP Q6 PRN PRN Reason: Pain, moderate (4-7) Lamotrigine (Lamictal) 25 mg PO Q12 [facility] Last Admin: 09/25/18 08:56 Dose: 25 mg Metformin HCl (Glucophage) 500 mg PO BID [facility] Last Admin: 09/25/18 08:56 Dose: 500 mg Pravastatin Sodium (Pravachol) 20 mg PO HS [facility] Last Admin: 09/24/18 21:55 Dose: 20 mg Pyridoxine HCl (Vitamin B6 50 Mg Tab) 50 mg PO [facility] Last Admin: 09/24/18 21:54 Dose: 50 mg Silver Sulfadiazine (Silvadene 1% 20 Gm) 0 ea TOP DAILY [facility] Last Admin: 09/24/18 09:17 Dose: 1 applic - Labs Labs: 09/25/18 05:35 09/25/18 05:35 PT 14.0 Seconds (9.8-13.1) H 09/25/18 05:35 INR 1.2 09/25/18 05:35 APTT 26.2 Seconds (25.6-37.1) 09/19/18 14:26 Assessment and Plan (1) Cellulitis Status: Acute (2) Osteomyelitis of foot Status: Acute (3) Non-healing ulcer of left foot Status: Chronic (4) Diabetes Status: Chronic (5) MGUS (monoclonal gammopathy of unknown significance) Status: Chronic (6) Mixed hyperlipidemia due to type 2 diabetes mellitus Status: Chronic
--- NOTE | 2018-10-02 11:33 | VASCULAR ---
PROCEDURE: Date of procedure: 09/25/2018 Procedure: 1. Placement of a right arm PICC with ultrasound and fluoroscopic guidance, CPT 31891 2. PICC tip confirmation with spot radiograph and is in the superior vena cava Medications: 1 percent lidocaine Total Fluoro time: 1.5 Seconds Radiation: 0.15 MGy EBL: 2 cc HISTORY: Infection requiring long-term IV antibiotics TECHNIQUE: Following informed consent and procedure time-out, the patient was placed supine on the interventional table and the right arm prepped and draped in the usual sterile fashion. Ultrasound showed a patent and compressible right basilic vein. After the skin was anesthetized with lidocaine, the basilic vein was accessed with micro micropuncture technique using ultrasound guidance. A guidewire was then advanced under fluoroscopic guidance into the superior vena cava. An image documenting ultrasound guidance for vascular access was permanently saved. The length of the single-lumen 4 [place] PICC was trimmed to 37 centimeters and advanced through a peel-away sheath. The PICC was position with tip of PICC confirm a spot radiograph the superior vena cava. The PICC was secured to the patient's skin. The PICC was flushed. A biopatch and sterile dressing was applied. IMPRESSION: Placement of a single-lumen 4 [place] PICC trimmed to 37 centimeters via right basilic vein. The tip of the PICC is confirmed with spot radiograph and is in the superior vena cava.
== END 2018-09-25 13:47 | disposition home or self-care (01) | DRG 854 ==
LOC: H.ER 13:11 → H.ERHOLD 14:53 → H.MEDSURG1 22:14
PROVIDERS: ADMIT Hospitalist; ATTEND Hospitalist
PROC: 0QTP0ZZ Resection of Left Metatarsal, Open Approach (ICD-10-PCS; 2018-09-19)
PROC: 0J9R0ZZ Drainage of Left Foot Subcutaneous Tissue and Fascia, Open Approach (ICD-10-PCS; 2018-09-19)
PROC: 0QTP0ZZ Resection of Left Metatarsal, Open Approach (ICD-10-PCS; principal; 2018-09-19 21:30)
PROC: 02HV33Z Insertion of Infusion Device into Superior Vena Cava, Percutaneous Approach (ICD-10-PCS; 2018-09-25)
PROC: B518ZZA Fluoroscopy of Superior Vena Cava, Guidance (ICD-10-PCS; 2018-09-25)
PROC: B548ZZA Ultrasonography of Superior Vena Cava, Guidance (ICD-10-PCS; 2018-09-25)
DX: A41.01 Sepsis due to Methicillin susceptible Staphylococcus aureus (principal); L03.116 Cellulitis of left lower limb; E87.1 Hypo-osmolality and hyponatremia; M86.19 Other acute osteomyelitis, multiple sites; L02.612 Cutaneous abscess of left foot; D62 Acute posthemorrhagic anemia; E11.69 Type 2 diabetes mellitus with other specified complication; E11.610 Type 2 diabetes mellitus with diabetic neuropathic arthropathy; E11.40 Type 2 diabetes mellitus with diabetic neuropathy, unspecified; E11.621 Type 2 diabetes mellitus with foot ulcer; D47.2 Monoclonal gammopathy; Z87.891 Personal history of nicotine dependence; E11.65 Type 2 diabetes mellitus with hyperglycemia; E78.2 Mixed hyperlipidemia; L97.529 Non-pressure chronic ulcer of other part of left foot with unspecified severity; M19.90 Unspecified osteoarthritis, unspecified site; M20.10 Hallux valgus (acquired), unspecified foot; R00.0 Tachycardia, unspecified

== ENCOUNTER 2018-11-09 05:59 | Day surgery (SDC) | payer BC ==
[2018-11-07 17:06] VITALS: BMI 24.9
[2018-11-09] MEDS ORDERED: Lidocaine 1% Inj (20ml) IJ ONE (06:39)
[2018-11-09] MEDS ORDERED: ceFAZolin 1 GM in Sodium Chloride 0.9% 100 ML IVPB ONE (06:39)
[2018-11-09] MEDS ORDERED: Bupivacaine 0.25% Inj(30mL) IJ ONE (06:39)
[2018-11-09] MEDS ORDERED: Sodium Chloride 0.9% 1,000 ML IV SCH (06:45)
--- NOTE | 2018-11-09 07:04 | CP.SDSHP ---
Same Day Surgery H & P - History Proposed Procedure: Left foot wound debridement with graft application Pre-Op Diagnosis: Left foot non-healing ulceration - Allergies Allergies: Allergies No Known Allergies Allergy (Verified 11/09/18 06:22) - Physical Exam Vital Signs: Vital Signs 11/09/18 11/09/18 06:31 06:37 Temperature 97.8 F Pulse Rate 83 83 Respiratory 18 Rate Blood Pressure 133/77 O2 Sat by Pulse 100 Oximetry Mental Status: Alert & Oriented x3 Neuro: WNL Heart: WNL Lungs: WNL - Impression Impression: Pt was seen and examined in SDS. Pt NPO status was confirmed. All pre-op testing and clearance in chart. Pt has exhausted all conservative treatment at this time and is opting for surgical intervention. Pt was explained procedure and post-operative course. All pt's questions were answered to satisfaction. No guarantees were made. Pt understands all risks, benefits and complications of procedure. Pt will follow-up with Dr. Henley within 1 week of surgery Pt. Evaluated Today:Candidate for Anesthesia & Procedure: Yes - Date & Time Date: 11/09/18 Time: 07:08 Short Stay Discharge - Short Stay Discharge Admitting Diagnosis/Reason for Visit: L97.521/N86.172 Disposition: HOME/ ROUTINE Additional Instructions (Diet, Activity): -Patient in good/stable condition for discharge home -Pt to resume medications per medical reconciliation -Resume regular diet -Please keep dressing clean, dry, & intact to surgical site -Use plastic bag over bandage for showering -Wear post op shoe at all times when ambulating -Call clinic if you see signs of infection (redness, swelling, malodor) -Please make an appointment to see Dr. Henley in office/clinic within 1 week for post-op check Progress Note/Discharge Note with Instructions: - Patient evaluated bedside in recovery s/p [place] - After surgical procedure patient in NAD - (+) Void, (+) Appetite - Capillary refill time <3s and NVS intact. - Patient denies complaints at this time. - Post operative instructions and plan of care explained to patient at length. - Patient. acknowledges verbal understanding. - Patient stable for DC per podiatric surgery
[2018-11-09] MEDS ORDERED: Lactated Ringer's 1,000 ML IV ONE (07:06)
--- NOTE | 2018-11-09 07:06 | CP.PCM.PN ---
Subjective - Date & Time of Evaluation Date of Evaluation: 11/09/18 Time of Evaluation: 07:04 - Subjective Subjective: SDS Progress Note: Dr. Henley 53 year old male patient, with PMHx of DMII, HLD, seen and evaluated in SDS for left foot wound debridement with skin graft application. Patient states that he has had this non-healing wound for a over two months. Patient reports that he has remained NPO since midnight as instructed. He is aware of the proposed procedure and does not have any questions or concerns regarding the surgical procedure planned today. Patient denies nausea/vomiting/fever/chills. PMHx: as above PSHx: denies SHx: Former tobacco use (2009), social alcohol use, denies drug use ALL: NKDA Objective - Vital Signs/Intake and Output Vital Signs (last 24 hours): Temp Pulse Resp BP Pulse Ox 97.8 F 83 18 133/77 100 11/09/18 06:31 11/09/18 06:37 11/09/18 06:31 11/09/18 06:31 11/09/18 06:31 - Medications Medications: Current Medications Bupivacaine HCl (Marcaine 0.25%) 20 ml IJ ONCE ONE Stop: 11/09/18 06:40 Cefazolin Sodium 1 gm/ Sodium (Chloride) 100 mls @ 100 mls/hr IVPB ONCE ONE; Protocol Stop: 11/09/18 07:38 Sodium Chloride (Sodium Chloride 0.9%) 1,000 mls @ 0 mls/hr IV .Q0M MAHAMED Stop: 11/10/18 06:39 Lidocaine HCl (Lidocaine 1% (20ml)) 20 ml IJ ONCE ONE Stop: 11/09/18 06:40 - Constitutional Appears: Non-toxic, No Acute Distress - Head Exam Head Exam: ATRAUMATIC, NORMOCEPHALIC - Extremities Exam Additional comments: Left lower extremity dressing left clean, dry, intact Patient able to wiggle toes CFT < 3 seconds to digits - Neurological Exam Neurological Exam: Alert, Awake, Oriented x3 - Psychiatric Exam Psychiatric exam: Normal Affect, Normal Mood Assessment and Plan - Assessment and Plan (Free Text) Assessment: 53 year old male patient, with PMHx of DMII, HLD, seen and evaluated in SDS for left foot wound debridement with skin graft application. Plan: Pt was seen and examined in SDS Pt NPO status was confirmed All pre-op testing and clearance in chart Pt has exhausted all conservative treatment at this time and is opting for surgical intervention Pt was explained procedure and post-operative course All pt's questions were answered to satisfaction No guarantees were made Pt understands all risks, benefits and complications of procedure Pt will follow-up with Dr. Henley within 1 week of surgery
[2018-11-09] MEDS ORDERED: Bupivacaine 0.5% Inj(30mL) ONE (07:21)
[2018-11-09] MEDS ORDERED: Lidocaine 1% Inj (20ml) ONE (07:21)
[2018-11-09] MEDS ORDERED: Propofol 10 mg/ml Inj (20 ML) ONE (07:28)
[2018-11-09] MEDS ORDERED: Midazolam 2 MG/2 ML VIAL ONE (07:29)
[2018-11-09] MEDS ORDERED: Bacitracin Ointment 30 GM TUBE ONE (08:45)
[2018-11-09] MEDS ORDERED: HYDROmorphone 0.5 mg/0.5 ml ISec IVP PRN (09:10)
[2018-11-09] MEDS ORDERED: Lactated Ringer's 1,000 ML IV SCH (09:15)
--- NOTE | 2018-11-09 09:19 | PCM.SURG1 ---
Surgeon's Initial Post Op Note - Surgeon's Notes Surgeon: Dr. Henley, DPM Studio Operations Manager: Dr. Chidi Villalta, PGY1 Type of Anesthesia: IV Sedation, Local Anesthesia Administered By: Dr. Adams Pre-Operative Diagnosis: Left sub 1st metatarso-phalangeal joint plantar wound Operative Findings: see dictation. I: 10 cc 1:1 mixture of 1% Lidocaine and 0.5% Marcaine plain. M: 3-0 Prolene, Integra Bilayer graft Post-Operative Diagnosis: same as above Operation Performed: Left foot wound debridement with VersaJet and Application of Integra Bilayer graft Specimen/Specimens Removed: none Estimated Blood Loss: EBL {In ML}: 5 Blood Products Given: N/A Drains Used: No Drains Post-Op Condition: Good Date of Surgery/Procedure: 11/09/18 Time of Surgery/Procedure: 09:19
[2018-11-09 10:14] VITALS: RESP 18
[2018-11-09 12:01] VITALS: BP 132/80; PULSE 75; TEMP 97; O2SAT 100
--- NOTE | 2018-11-11 14:38 | PCM.OP ---
Operative Report - Operative Report Date of Surgery/Procedure: 11/09/18 Time of Surgery/Procedure: 08:00 Surgeon: Dr. Henley Anesthesia/Sedation: Anesthesiologist: Dr. Adams Anesthesia: IV Sedation with Local Pre-Operative Diagnosis: Left foot non-healing Ulceration Dorso-Medial Aspect of the 1st Metatarso- phalangeal Joint Post-Operative Diagnosis: same as above Indication for Surgery: Name of Procedures: 1) Left Foot Wound Debridement With VersaJet 2) Left Foot Wound Application of Integra Bilayer skin graft Indications:The patient is a 53 year-old male with the above diagnoses. The patient has exhausted all conservative treatment at this time and now requires surgical intervention. The patient signed the consent after careful explanation of risks, benefits, complications and alternatives for surgical procedure. No guarantees were given nor implied. NPO status was confirmed prior to taking patient to the OR Operative Findings: Preparation:The patient was brought in to the operating room and placed on the operating room table in a supine position. Timeout was performed for identification of the correct patient and procedure. Patient received 10 cc of 1:1 mixture of 1% Lidocaine and 0.5% Marcaine plain proximal to the wound in a V-block type fashion. Left foot was then prepped and draped in normal sterile manner and the procedure began.No tourniquet was used during the procedure. Procedure/Operation Description: Procedure 1: Attention was then drawn to the left foot ulceration to the dorso- medial aspect of the 1st metatarso-phalangeal joint measuring 5 cm X 1.5 cm. The ulceration is to the level of subcutaneous tissue. The wound was debrided removing all nonviable tissue with a #15 blade. Then Versajet on Setting 4 was utilized until granular tissue was noted. The wound was debrided with care being taken toavoidneurovascular structure. Good bleeding was noted to the wound bed. The wound was then copiously irrigiated with sterile saline. Procedure 2: At this time, the meshed Integra Bilayer graft was measured to the size of the wound. All of the material from the remaining graft was scraped with a free-elevator and packed into the wound bed. Graft was secured to the wound with utilizing 3-0 Prolene sutures circumferentially along the edges. The wound was dressed with bacitracin, adaptic, 4X4, Kerlix and BIANKA bandage. Estimated Blood Loss: 5 cc Complications: none Discharge & Condition: Postoperative Condition: The patient tolerated the anesthesia and procedure well and was escorted to the recovery room with neurovascular status intact to the left foot. Patient to follow up with Dr. Henley in his office, and to keep dressing clean, dry and intact. patient is advised to remain non-weight bearing.
== END 2018-11-09 12:06 | disposition home or self-care (01) ==
LOC: H.OPSURG 05:59
PROVIDERS: ATTEND Podiatrist
DX: E11.621 Type 2 diabetes mellitus with foot ulcer (principal); L97.521 Non-pressure chronic ulcer of other part of left foot limited to breakdown of skin; Z87.891 Personal history of nicotine dependence; E78.5 Hyperlipidemia, unspecified
CPT/HCPCS: 15004; 15275; 82948; 97161; G8978; G8979; G8980; J0690; J2001; J2250; J2704; J3010; J7030; J7120; Q4104